=== PATIENT | male | born 1960 | race African-American/Black ===

== ENCOUNTER 2016-10-28 07:30 | Inpatient (IN) ==
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
[2016-10-28 07:56] LABS: URINE SOURCE CLEAN CATCH
[2016-10-28 08:18] LABS: MANUAL DIFF NEEDED? YES
[2016-10-28 08:19] LABS: BASO% 0.1 % (0.0-0.8); EOS# 0.03 X1000 (0.0-0.7); EOS% 0.1 % (0.0-10.0); HEMATOCRIT 29.8 % (42.0-52.0); HEMOGLOBIN 9.5 g/dL (14.0-18.0); LYMPH# 1.65 X1000 (1.2-3.4); LYMPH% 5.4 % (20.5-51.1); MCH 23.5 PG (27-31); MCHC 31.9 g/dL (33-37); MCV 73.6 FL (81-99); MONO# 2.05 X1000 (0.11-0.59); MONO% 6.7 % (1.7-9.3); MPV 8.9 FL (7.4-10.4); NEUT% 87.7 % (42.2-75.2); PLT 645 X1000 (130-400); RBC 4.05 XMIL (4.7-6.1)
[2016-10-28 08:25] LABS: BILIRUBIN URINE NEGATIVE (NEGATIVE); BLOOD URINE SMALL (NEGATIVE); COLOR ORANGE; GLUCOSE URINE NEGATIVE (NEGATIVE); LEUKOCYTES URINE LARGE (NEGATIVE); NITRITE URINE NEGATIVE (NEGATIVE); PH URINE 8.5; PROTEIN URINE >600 mg/dL (NEGATIVE); SP GRAVITY URINE 1.013; TURBIDITY URINE TURBID (CLEAR); UROBILINOGEN URINE NORMAL (NORMAL)
[2016-10-28] MEDS ORDERED: ROCEPHIN 1 GM/NS 1 GM/50 ML IVPB IV ONE (08:25)
[2016-10-28 08:26] LABS: AGAP 13; ALBUMIN 2.6 g/dL (3.5-5.0); ALKALINE PHOSPHATASE 126 U/L (32-122); BUN 19 mg/dL (8-22); CALCIUM 9.1 mg/dL (8.8-10.2); CHLORIDE 97 mmol/L (98-107); COSMO 280; GOT 10 U/L (10-34); GPT 5 U/L (10-44); POTASSIUM 3.5 mmol/L (3.5-5.1); SODIUM 139 mmol/L (136-145); TCO2 29 mmol/L (25-35); TOTAL PROTEIN 7.8 g/dL (6.3-8.3)
[2016-10-28 08:28] LABS: UR EPITHELIAL CELLS >10 /HPF (<10); URINE BACTERIA 4+ /HPF; URINE CULTURE NEEDED? YES; URINE MICRO REVIEW NEEDED? YES; URINE RBC TNTC /HPF (<10); URINE WBC TNTC /HPF (<10)
[2016-10-28] MEDS ORDERED: NS 1,000 ML IV ONE (08:33)
[2016-10-28 08:46] LABS: URINE CASTS GRANULAR PRESENT; URINE CRYSTALS TRIPLE PHOS PRESENT; URINE SMALL ROUND CELLS NONE SEEN
--- NOTE | 2016-10-28 08:49 | Diag Imaging Result Doc PS360 ---
EXAM: CHEST-PORTABLE INDICATION: Cough TECHNIQUE: One view COMPARISON: 06/26/2015 FINDINGS: There are minimal increased linear markings at the lung bases are fairly similar to the previous study. This suggests minimal subsegmental atelectasis versus scarring. There is no discrete pleural fluid collection or pneumothorax. Cardiac silhouette is stable. IMPRESSION: Suggestion of minimal bibasilar atelectasis versus scarring. No definite acute pathology by plain radiograph. Electronically signed by Gio Cheek 10/28/2016 8:46 AM
[2016-10-28] MEDS: NS 1,000 ML IV SCH ×2 (10:07→22:09)
[2016-10-28] MEDS: MERREM 1 GM in NS 50 ML IV SCH ×2 (11:30→18:00)
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
--- NOTE | 2016-10-28 16:44 | Diag Imaging Result Doc PS360 ---
EXAM: US ABDOMEN-COMPLETE INDICATION: kalli/h/o hydronephrosis/abd pain COMPARISON: Renal ultrasound dated 06/18/2010 FINDINGS: The gallbladder is not identified and is probably been resected. Please correlate with surgical history. The common bile duct is normal in diameter. The liver is grossly unremarkable. Portal venous flow is hepatopedal. The pancreas is obscured by bowel gas. The aorta and IVC are grossly unremarkable. The spleen is unremarkable. There are multiple prominent intrarenal stones bilaterally. There is no evidence of hydronephrosis. The kidneys are grossly unremarkable, otherwise. IMPRESSION: 1.Bilateral nephrolithiasis. 2.Essentially unremarkable, otherwise. Electronically signed by Gio Cheek 10/28/2016 4:41 PM
[2016-10-28] MEDS: PERICOLACE PO SCH (22:11)
[2016-10-28] MEDS: NEURONTIN PO SCH (22:11)
[2016-10-28] MEDS: DESYREL PO SCH (22:11)
[2016-10-28] MEDS: PATIENT'S OWN MED PO SCH (22:12)
[2016-10-28] MEDS: COSOPT OPHTH SOLN BOTH EYES SCH (22:12)
[2016-10-28] MEDS: XALATAN 0.005% OPH SOLN BOTH EYES SCH (22:12)
[2016-10-29] MEDS: MERREM 1 GM in NS 50 ML IV SCH ×3 (02:55→19:46)
[2016-10-29] MEDS: TYLENOL PO PRN ×2 (04:41→20:51)
[2016-10-29] MEDS: PRILOSEC PO SCH (06:29)
[2016-10-29] MEDS: NS 1,000 ML IV SCH ×2 (06:29→16:37)
[2016-10-29 07:13] LABS: INR 1.31
[2016-10-29 07:33] LABS: AGAP 12; BUN 15 mg/dL (8-22); CHLORIDE 102 mmol/L (98-107); COSMO 278; IRON SATURATION 16 %; POTASSIUM 2.7 mmol/L (3.5-5.1); SODIUM 139 mmol/L (136-145); TCO2 25 mmol/L (25-35); TIBC 112 ug/dL; TOTAL IRON 18 ug/dL (53-167); UNBOUND IRON 94 ug/dL (112-346)
[2016-10-29] MEDS ORDERED: MAGNESIUM SULFATE 2 GM/S.W.I. 2 GM/50 ML IVPB IV ONE (08:15)
[2016-10-29] MEDS ORDERED: KLOR-CON PO ONE (08:15)
[2016-10-29] MEDS: CELEXA PO SCH (10:47)
[2016-10-29] MEDS: ASPIRIN PO SCH (10:47)
[2016-10-29] MEDS: NEURONTIN PO SCH ×2 (10:48→20:03)
[2016-10-29] MEDS: PERICOLACE PO SCH ×2 (10:48→20:03)
[2016-10-29] MEDS: THERA M PLUS PO SCH (10:48)
[2016-10-29] MEDS: LOVENOX SUBQ SCH ×2 (10:48→11:01)
[2016-10-29] MEDS: COSOPT OPHTH SOLN BOTH EYES SCH ×2 (10:57→20:02)
[2016-10-29] MEDS: PATIENT'S OWN MED PO SCH ×2 (11:00→20:03)
--- NOTE | 2016-10-29 14:14 | PROGRESS NOTE ---
DATE: 10/29/2016 SUBJECTIVE: Today Mr. Wilson refers to be doing a little better. Denies any complaints. Per the nursing staff, his night was uneventful. OBJECTIVE: General: Ms. Wilson is a 56-year-old male. He looks chronically ill. He is quadriplegic. He is in bed, does not seem to be in any distress. HEENT: Mucosa is pink and moist. Anicteric. Acyanotic. Neck: Supple. Chest: Clear. Cardiovascular: Regular rate and rhythm. Abdomen: Soft, nontender. There is a suprapubic catheter in place. 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 He is in position due to his spastic quadriplegia. LABORATORY DATA: There is no CBC for this morning. Yesterday, WBC was 30.75, hemoglobin was 9.5, platelet count 644,000. Chemistry is reviewed. Potassium is 2.7, which is replaced. ASSESSMENT: 1. Sepsis secondary to urinary tract infection. 2. Indwelling suprapubic catheter. 3. Acute kidney injury, resolved. 4. Microcytic anemia secondary to chronic disease. 5. Severe protein calorie malnutrition. 6. Quadriplegia, noted. PLAN: So far, the Mr. Wilson's urine is showing gram-negative rods. He is currently on meropenem. We plan to continue this until we know the ID and sensitivity. We will also be checking on his labs for tomorrow morning, especially on the WBC. cc: Camilo Sanchez MD MTDShima
--- NOTE | 2016-10-29 14:39 | Diag Imaging Result Doc PS360 ---
EXAM: ABDOMEN/PELVIS W/O CONTRAST INDICATION: kidney stones TECHNIQUE: COMPARISON: 06/19/2015 FINDINGS: There is mild subsegmental atelectasis versus scarring at the lung bases. There are large intrarenal stones bilaterally. There is a staghorn calculus on the left. The right renal collecting system is dilated and there are droplets of gas in the right renal pelvis consistent with pyelitis. There is a prominent fluid collection with a thickened irregular periphery that extends from the posterior aspect of the right kidney through the posterior abdominal wall and into the subcutaneous soft tissues just deep to the skin surface of the right flank. This is consistent with abscess. It is probably contiguous with the dilated right renal collecting system. Axially, it measures up to 6.8 x 7.3 cm. There is mild prominence and inflammatory changes around the right ureter. The left ureter is also somewhat dilated. No obstructing stones are identified in the ureters. However, there is a 4.4 mm stone near the right UVJ but probably already within the urinary bladder. There is a suprapubic percutaneous catheter in the urinary bladder. There is a large rectal fecal impaction. The impacted rectum measures up to 9.6 x 8.4 cm axially. There is no significant small bowel distention. The gallbladder is contracted and full of dense material. This probably represents multiple calcified stones in the gallbladder lumen. No pericholecystic inflammatory changes appreciated. The liver, spleen, adrenal glands, and pancreas are unremarkable. There is severe irregularity involving the hips, worse on the right, with heterotopic bone formation around the right hip, stable. IMPRESSION: 1.Bulky intrarenal stones bilaterally. 2.Distended right renal collecting system with droplets of gas in the right renal pelvis suggesting pyelitis with a prominent fluid collection extending through the posterior abdominal wall into the soft tissues of the right flank consistent with abscess. Please see the above discussion. 3.Bilateral bulky intrarenal stones and a 4 mm stone near the right UPJ but probably already within the urinary bladder. 4.Large rectal fecal impaction. 5.Other incidental/nonacute findings detailed above. Electronically signed by Gio Cheek 10/29/2016 2:36 PM
[2016-10-29] MEDS ORDERED: DULCOLAX PR ONE (15:18)
--- NOTE | 2016-10-29 15:47 | CONSULTATION ---
DATE OF CONSULTATION: 10/29/2016 ATTENDING AND REFERRING PHYSICIAN: Hospitalist. HISTORY OF PRESENT ILLNESS: This 56-year-old male with incomplete C4 quadriplegia that manages his bladder with an indwelling suprapubic tube was admitted with a significantly increased white blood cell count and urinary tract infection. He was noted to have significant leakage around his suprapubic tube. The patient states he has had this for several weeks. He states the alf changes his suprapubic tube monthly. He was last seen by urology in June of 2015 where he was noted to have a left staghorn calculus that was nonobstructing and a 1 cm stone in the right proximal ureter with hydronephrosis. He had sepsis syndrome at that time and a double-J stent was placed. He states as far as he knows the stent is still in place. He states he has had no further treatment. The patient denies any other urologic surgery. PAST MEDICAL HISTORY: As noted in the HPI. Hypertension, recurrent urinary infections, neurogenic bladder secondary to his neurological problems, history of sacral decubitus ulcers, gastroesophageal reflux disease. CURRENT MEDICATIONS: Documented on the chart. PAST SURGICAL HISTORY: Suprapubic tube placement, cystoscopic exam with placement of a right double-J stent in 2015. SOCIAL HISTORY: No tobacco or alcohol use. He lives in a alf. ALLERGIES: No known drug allergies. REVIEW OF SYSTEMS: He states he has been feeling weak. He denies any problems with heart disease, strokes, or seizures. PHYSICAL EXAMINATION: General: A very thin, age-apparent, normally-developed, black male, with apparent contractures of his lower extremities with muscle atrophy consistent with quadriplegia. : Normal male. Both testes are down and palpably normal. There is a suprapubic tube in place and it does not appear to be draining very well. Back: Has apparent decubitus ulcers but dressings are in place and these were not disturbed. Rectal: He has significant hemorrhoids. Rectal exam has no sphincter tone and prostate is about 30 g, smooth, and symmetric. The patient had a bowel movement after the rectal exam. Extremities: No clubbing, cyanosis, or edema. Neurologic: Consistent with partial C4 quadriplegia. LABORATORY EVALUATION: Has a white count of 30.75, hemoglobin 9.5, hematocrit 29.8, platelets are 645,000. Serum electrolytes have a sodium of 139, potassium 2.7, chloride 102, bicarb 25, BUN 15, creatinine 1.0. Urine culture obtained yesterday is growing a gram-negative farhat. Renal ultrasound reveals bilateral nephrolithiasis but no hydronephrosis. IMPRESSION: 1. Obstructed suprapubic tube. 2. Urinary tract infection with markedly increased white blood cell count. 3. History of renal lithiasis. RECOMMEND: 1. Change SP tube. This was done without problems. The SP tube was obstructed and when it was removed a large amount of purulent urine came out of the SP tube tract. A new 20-Burm[place] SP tube was placed, 10 mL of water were placed in the balloon, and it was placed to drain 2. Keep the suprapubic tube perpendicular to the skin. 3. Antibiotics per culture sensitivities. 4. CT stone search to evaluate his kidney stones. 5. Irrigate the bladder through suprapubic tube as needed. Thank you for this consultation. cc: MD Camilo Duran MD
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
[2016-10-29] MEDS: FLOVENT 220 MICROGM HFA INH SCH (19:44)
[2016-10-29] MEDS: XALATAN 0.005% OPH SOLN BOTH EYES SCH (20:02)
[2016-10-29] MEDS: DESYREL PO SCH (20:03)
[2016-10-30] MEDS: NS 1,000 ML IV SCH ×3 (02:04→22:30)
[2016-10-30] MEDS: MERREM 1 GM in NS 50 ML IV SCH ×2 (03:56→14:54)
[2016-10-30] MEDS ORDERED: TYLENOL PR PRN (04:13)
[2016-10-30] MEDS: PRILOSEC PO SCH (06:22)
[2016-10-30 07:59] LABS: AGAP 8; ALBUMIN 1.7 g/dL (3.5-5.0); ALKALINE PHOSPHATASE 107 U/L (32-122); BUN 10 mg/dL (8-22); CALCIUM 7.9 mg/dL (8.8-10.2); CHLORIDE 109 mmol/L (98-107); COSMO 283; GOT 11 U/L (10-34); GPT 5 U/L (10-44); MAGNESIUM 1.9 mg/dL (1.5-2.7); POTASSIUM 3.2 mmol/L (3.5-5.1); SODIUM 143 mmol/L (136-145); TCO2 26 mmol/L (25-35); TOTAL BILIRUBIN 1.06 mg/dL (0.20-1.00); TOTAL PROTEIN 5.8 g/dL (6.3-8.3)
[2016-10-30] MEDS: FLOVENT 220 MICROGM HFA INH SCH ×2 (08:11→20:00)
[2016-10-30] MEDS ORDERED: KLOR-CON PO ONE (08:18)
[2016-10-30] MEDS ORDERED: MAGNESIUM SULFATE 2 GM/S.W.I. 2 GM/50 ML IVPB IV ONE (08:19)
[2016-10-30 08:31] LABS: BASO% 0.1 % (0.0-0.8); EOS# 0.18 X1000 (0.0-0.7); EOS% 0.5 % (0.0-10.0); HEMATOCRIT 19.3 % (42.0-52.0); HEMOGLOBIN 6.1 g/dL (14.0-18.0); LYMPH# 1.26 X1000 (1.2-3.4); LYMPH% 3.2 % (20.5-51.1); MANUAL DIFF NEEDED? YES; MCH 23.5 PG (27-31); MCHC 31.6 g/dL (33-37); MCV 74.2 FL (81-99); MONO% 5.6 % (1.7-9.3); MPV 9.1 FL (7.4-10.4); NEUT% 90.6 % (42.2-75.2); PLT 539 X1000 (130-400)
[2016-10-30 09:22] LABS: LYMPHS 5 % (21-51); MONO 9 % (1-9)
[2016-10-30] MEDS: COSOPT OPHTH SOLN BOTH EYES SCH ×2 (10:09→22:39)
[2016-10-30 10:24] LABS: HEPATITIS PROFILE ACUTE SEE COMMENTS
[2016-10-30] MEDS: LOVENOX SUBQ SCH (13:19)
--- NOTE | 2016-10-30 14:30 | Diag Imaging Result Doc PS360 ---
CT GUIDE ABD DRAINAGE W/CATH - 10/30/2016 INDICATION: CT Guided Drainage of Subcutaneous and Retroperitoneum abscess- TECHNIQUE: The risks and benefits of the procedure were discussed with the patient. All questions were answered. Written and verbal informed consent was obtained. Overlying skin was prepped and draped in sterile fashion. Anesthesia was achieved with injection of 10 cc of 1% lidocaine. COMPARISON: CT abdomen pelvis 10/29/2016 FINDINGS: There is a subcutaneous collection in the right flank overlying the kidney. A 12-Tamazight drain was placed in this extremely superficial collection. About 50 cc of pus was drained. There are probably two pockets, the more superior pocket was drained very effectively whereas there is some residual pus in the inferior pocket. The drain was anchored and left in place. IMPRESSION: Successful and uncomplicated extremely superficial subcutaneous abscess drain. The abscess appears to be multiloculated, the superior most collection was drained more effectively than the inferior most portion. The inferior portion could probably be addressed just as effectively with simple surgical incision and drainage. Electronically signed by Irving Coronado 10/30/2016 2:28 PM
[2016-10-30] MEDS: THERA M PLUS PO SCH (14:52)
[2016-10-30] MEDS: CELEXA PO SCH (14:53)
[2016-10-30] MEDS: PATIENT'S OWN MED PO SCH ×3 (14:54→22:41)
[2016-10-30] MEDS: ASPIRIN PO SCH (14:54)
[2016-10-30] MEDS: PERICOLACE PO SCH ×2 (14:54→22:39)
[2016-10-30] MEDS: NEURONTIN PO SCH ×2 (14:54→22:37)
[2016-10-30] MEDS: MIRALAX PO SCH (14:55)
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
[2016-10-30] MEDS ORDERED: MAXIPIME 1 GM/NS 1 GM/50 ML IVPB IV SCH (19:00)
--- NOTE | 2016-10-30 19:18 | PROGRESS NOTE ---
DATE: 10/30/2016 PRESENT ILLNESS: The patient underwent percutaneous drainage of a perinephric abscess today. MEDICATIONS: The patient is receiving meropenem. PHYSICAL EXAMINATION: Vital Signs: Temperature is 98.9 degrees, pulse 90, respirations 16, blood pressure 82/46. General: This is an ill-appearing middle-aged male. He is in no acute distress. Lungs: Clear to auscultation. Cardiovascular: Regular heart rate. Abdomen: A drain is coming from the perinephric abscess into an accordion drain. Neurologic: Patient is awake. 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 LAB AND X-RAY: CBC today showed a white count of 39,230, hemoglobin 6.1 and platelet count 539,000. Creatinine 0.9. Hepatitis panel was nonreactive. Blood culture was negative. Urine cultures growing Acinetobacter and another gram-negative farhat. ASSESSMENT AND PLAN: I did not see where any of the fluid obtained percutaneously was sent for culture. Therefore, I have requested that a specimen from the drain that is draining the perinephric abscess be sent for culture. I have discontinued meropenem and placed the patient on cefepime. I plan to continue cefepime pending final identification of the gram-negative farhat that is present in the urine along with Acinetobacter. COMORBIDITIES: He has renal calculi and he is very debilitated. cc: MD Camilo Edwards MD
[2016-10-30] MEDS: DESYREL PO SCH (22:37)
[2016-10-30] MEDS: XALATAN 0.005% OPH SOLN BOTH EYES SCH (22:38)
[2016-10-31] MEDS: NORCO-5 PO PRN ×2 (01:21→10:21)
[2016-10-31] MEDS: NS 1,000 ML IV SCH ×3 (05:45→20:57)
[2016-10-31 07:18] LABS: BASO% 0.2 % (0.0-0.8); EOS# 0.61 X1000 (0.0-0.7); EOS% 1.8 % (0.0-10.0); HEMOGLOBIN 5.9 g/dL (14.0-18.0); IMM GRAN# 0.24 X1000 (0.0-0.04); IMM GRAN% 0.7 % (0.0-0.5); LYMPH# 2.44 X1000 (1.2-3.4); LYMPH% 7.4 % (20.5-51.1); MANUAL DIFF NEEDED? YES; MCH 22.4 PG (27-31); MCHC 31.1 g/dL (33-37); MCV 72.2 FL (81-99); MONO# 1.68 X1000 (0.11-0.59); MONO% 5.1 % (1.7-9.3); MPV 9.3 FL (7.4-10.4); NEUT% 84.8 % (42.2-75.2); PLT 568 X1000 (130-400); RBC 2.63 XMIL (4.7-6.1)
[2016-10-31 07:21] LABS: AGAP 9; BUN 11 mg/dL (8-22); CHLORIDE 108 mmol/L (98-107); COSMO 281; POTASSIUM 3.6 mmol/L (3.5-5.1); SODIUM 142 mmol/L (136-145); TCO2 25 mmol/L (25-35)
[2016-10-31] MEDS: PRILOSEC PO SCH (07:53)
[2016-10-31] MEDS: FLOVENT 220 MICROGM HFA INH SCH ×2 (08:19→19:31)
[2016-10-31 08:21] LABS: BANDS 2 % (0-1); LYMPHS 4 % (21-51); MONO 2 % (1-9)
[2016-10-31 08:22] LABS: HYPOCHROM 3+
[2016-10-31 09:57] LABS: CREATININE BODY FLUID 0.7 mg/dL
[2016-10-31] MEDS: ASPIRIN PO SCH (10:22)
[2016-10-31] MEDS: CELEXA PO SCH (10:22)
[2016-10-31] MEDS: LOVENOX SUBQ SCH (10:23)
[2016-10-31] MEDS: COSOPT OPHTH SOLN BOTH EYES SCH ×2 (10:23→20:56)
[2016-10-31] MEDS: NEURONTIN PO SCH ×2 (10:24→20:56)
[2016-10-31] MEDS: THERA M PLUS PO SCH (10:25)
[2016-10-31] MEDS: PATIENT'S OWN MED PO SCH ×2 (10:25→20:57)
[2016-10-31] MEDS: PERICOLACE PO SCH ×2 (10:25→20:56)
[2016-10-31] MEDS: LEVAQUIN PO SCH (10:25)
[2016-10-31] MEDS: MIRALAX PO SCH (10:26)
[2016-10-31] MEDS: INVANZ 1 GM/NS 1 GM/50 ML IVPB IV SCH (10:56)
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
--- NOTE | 2016-10-31 15:11 | PROGRESS NOTE ---
DATE: 10/31/2016 PRESENT ILLNESS: The patient is status post percutaneous drainage of a perinephric abscess today. The abscess grew an extended spectrum beta lactamase-producing Escherichia coli and Acinetobacter. MEDICATIONS: The patient is day 1 of treatment with ertapenem and levofloxacin. The patient is on ertapenem and Levaquin. PHYSICAL EXAMINATION: Vital Signs: Temperature is 97.7 degrees, pulse 68, respirations 18, blood pressure 84/47. General: This is a chronically ill-appearing middle-aged male. He is in no acute distress at this time. Lungs: Clear to auscultation. Cardiovascular: Regular heart rate. Abdomen: Soft and not tender. A percutaneous drain is in place involving the perinephric abscess. LABORATORY AND X-RAY: CBC today shows a white count of 32,990, hemoglobin 5.9 and platelet count 568,000. Creatinine 0.7. GFR is greater than 60. There was no new x-ray finding. ASSESSMENT AND PLAN: 1. The patient is on antibiotics to treat a perinephric abscess which has been drained percutaneously. I plan to treat the patient for anywhere from 2-4 weeks with IV antibiotics and possibly more depending on how the patient does. The radiologist will decide when the drain can come out. 2. Comorbidities: The patient has renal calculi. He also is extremely debilitated. cc: Vinay Ramos MD
[2016-10-31] MEDS: SANTYL OINT TOP SCH (16:08)
[2016-10-31] MEDS: DESYREL PO SCH (20:56)
[2016-10-31] MEDS: XALATAN 0.005% OPH SOLN BOTH EYES SCH (20:56)
[2016-11-01] MEDS: NS 1,000 ML IV SCH ×4 (05:03→18:38)
[2016-11-01] MEDS: PRILOSEC PO SCH (06:12)
[2016-11-01 06:34] LABS: MANUAL DIFF NEEDED? NO
[2016-11-01 06:50] LABS: BASO% 0.2 % (0.0-0.8); EOS# 0.49 X1000 (0.0-0.7); EOS% 2.6 % (0.0-10.0); HEMATOCRIT 27.8 % (42.0-52.0); HEMOGLOBIN 9.1 g/dL (14.0-18.0); IMM GRAN# 0.15 X1000 (0.0-0.04); IMM GRAN% 0.8 % (0.0-0.5); LYMPH# 1.65 X1000 (1.2-3.4); LYMPH% 8.9 % (20.5-51.1); MCH 24.8 PG (27-31); MCHC 32.7 g/dL (33-37); MCV 75.7 FL (81-99); MONO# 1.09 X1000 (0.11-0.59); MONO% 5.9 % (1.7-9.3); MPV 8.9 FL (7.4-10.4); NEUT% 81.6 % (42.2-75.2); PLT 650 X1000 (130-400); RBC 3.67 XMIL (4.7-6.1)
[2016-11-01 06:58] LABS: AGAP 8; ALKALINE PHOSPHATASE 91 U/L (32-122); BUN 8 mg/dL (8-22); CALCIUM 8.1 mg/dL (8.8-10.2); CHLORIDE 109 mmol/L (98-107); COSMO 280; GOT 25 U/L (10-34); GPT 9 U/L (10-44); POTASSIUM 3.4 mmol/L (3.5-5.1); SODIUM 142 mmol/L (136-145); TCO2 25 mmol/L (25-35); TOTAL PROTEIN 5.9 g/dL (6.3-8.3)
[2016-11-01] MEDS: FLOVENT 220 MICROGM HFA INH SCH ×2 (07:40→19:14)
[2016-11-01] MEDS: INVANZ 1 GM/NS 1 GM/50 ML IVPB IV SCH (09:57)
[2016-11-01] MEDS: NEURONTIN PO SCH ×2 (09:58→20:23)
[2016-11-01] MEDS: ASPIRIN PO SCH (09:58)
[2016-11-01] MEDS: PERICOLACE PO SCH ×2 (09:58→20:23)
[2016-11-01] MEDS: THERA M PLUS PO SCH (09:58)
[2016-11-01] MEDS: LEVAQUIN PO SCH (09:58)
[2016-11-01] MEDS: CELEXA PO SCH (09:58)
[2016-11-01] MEDS: LOVENOX SUBQ SCH ×2 (09:58→10:55)
[2016-11-01] MEDS: MIRALAX PO SCH (09:59)
[2016-11-01] MEDS: PATIENT'S OWN MED PO SCH (10:00)
[2016-11-01] MEDS: COSOPT OPHTH SOLN BOTH EYES SCH ×2 (10:00→20:24)
--- NOTE | 2016-11-01 11:37 | Diag Imaging Result Doc PS360 ---
EXAM: ABDOMEN W/O CONTRAST HISTORY: f u right flank abcess TECHNIQUE: CT abdomen without. Dose reduction protocol. COMPARISON: 10/29/2016 and 10/30/2016 FINDINGS: Marked interval decrease in the size of the right flank abscess. There is decreased fluid within it. Drainage catheter remains in the central portion. Large bilateral renal stones are found similar to the prior exam. Spleen is not enlarged. Normal adrenal glands. Normal noncontrasted liver and pancreas. The gallbladder is contracted. The bowel loops are not dilated. There is focal weakening to the anterior abdominal wall which is similar to the prior exam. IMPRESSION: Interval improvement with marked decrease in the size of the right flank abscess Electronically signed by Lexa Campa 11/01/2016 11:34 AM
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
--- NOTE | 2016-11-01 17:44 | PROGRESS NOTE ---
DATE: 11/01/2016 PRESENT ILLNESS: The patient is receiving antibiotics for a perinephric abscess. A percutaneous drain remains in place. MEDICATIONS: This is day 2 of treatment with the combination of levofloxacin and ertapenem. PHYSICAL EXAMINATION: Vital Signs: Temperature is 98.6 degrees, pulse 73, respirations 16, blood pressure 139/70. Generally: This is a malnourished chronically ill- appearing middle-aged male. He is in no acute distress. Lungs: Clear to auscultation. Cardiovascular: Regular heart rate. Abdomen: Soft and nontender. The patient has a percutaneous drain in place. LABORATORY AND X-RAY: Today the patient's CBC has a white count of 18,570, which is down from 32,990 yesterday. The hemoglobin is 9.1, and platelet count 650,000. Creatinine 0.7. GFR is greater than 60. The patient's liver function studies are normal. The abscess culture itself is growing 2 gram-negative rods which will most likely be the same 2 gram negative rods that were isolated from his urine. CT scan shows a marked decrease in size of the perinephric abscess. ASSESSMENT AND PLAN: The patient has a perinephric abscess. Will continue his current antibiotics. COMORBIDITIES: He has renal calculi and he is extremely debilitated. cc: Vinay Ramos MD MTDD
[2016-11-01] MEDS: SANTYL OINT TOP SCH (18:38)
[2016-11-01] MEDS: XALATAN 0.005% OPH SOLN BOTH EYES SCH (20:23)
[2016-11-01] MEDS: DESYREL PO SCH (20:23)
[2016-11-02] MEDS: PATIENT'S OWN MED PO SCH (00:48)
[2016-11-02] MEDS: PRILOSEC PO SCH (06:02)
[2016-11-02] MEDS: NS 1,000 ML IV SCH ×2 (06:02→10:15)
[2016-11-02 06:52] LABS: MANUAL DIFF NEEDED? NO
[2016-11-02 06:57] LABS: BASO% 0.1 % (0.0-0.8); EOS# 0.43 X1000 (0.0-0.7); EOS% 2.8 % (0.0-10.0); HEMATOCRIT 29.3 % (42.0-52.0); HEMOGLOBIN 9.5 g/dL (14.0-18.0); IMM GRAN# 0.19 X1000 (0.0-0.04); IMM GRAN% 1.2 % (0.0-0.5); LYMPH# 1.63 X1000 (1.2-3.4); LYMPH% 10.5 % (20.5-51.1); MCH 24.6 PG (27-31); MCHC 32.4 g/dL (33-37); MCV 75.9 FL (81-99); MONO# 1.19 X1000 (0.11-0.59); MONO% 7.7 % (1.7-9.3); MPV 8.9 FL (7.4-10.4); NEUT% 77.7 % (42.2-75.2); PLT 728 X1000 (130-400); RBC 3.86 XMIL (4.7-6.1)
[2016-11-02 07:07] LABS: AGAP 10; BUN 5 mg/dL (8-22); CHLORIDE 107 mmol/L (98-107); COSMO 278; SODIUM 141 mmol/L (136-145); TCO2 24 mmol/L (25-35)
[2016-11-02] MEDS ORDERED: KLOR-CON PO ONE (08:12)
[2016-11-02] MEDS: FLOVENT 220 MICROGM HFA INH SCH (08:15)
[2016-11-02 08:19] VITALS: BP 101/56
[2016-11-02] MEDS: INVANZ 1 GM/NS 1 GM/50 ML IVPB IV SCH (10:09)
[2016-11-02] MEDS: CELEXA PO SCH (10:10)
[2016-11-02] MEDS: ASPIRIN PO SCH (10:10)
[2016-11-02] MEDS: PERICOLACE PO SCH (10:10)
[2016-11-02] MEDS: LEVAQUIN PO SCH (10:10)
[2016-11-02] MEDS: NEURONTIN PO SCH (10:12)
[2016-11-02] MEDS: THERA M PLUS PO SCH (10:12)
[2016-11-02] MEDS: LOVENOX SUBQ SCH (10:14)
[2016-11-02] MEDS: MIRALAX PO SCH (10:14)
--- NOTE | 2016-11-02 10:44 | PROGRESS NOTE ---
DATE: 11/02/2016 Patient has a perinephric abscess. He is being discharged [facility] today on Invanz 1 g IV daily and Levaquin 500 mg p.o. daily for 3 weeks. I plan to see the patient back in the office in 3 weeks at which time I will examine him and then order a repeat CT scan to make sure that the perinephric abscess has cleared. cc: Vinay Ramos MD
[2016-11-02] MEDS ORDERED: NS 250 ML ONE (11:05)
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
--- NOTE | 2016-11-03 15:32 | PROGRESS NOTE ---
DATE: 11/03/2016 Another culture has come back from the patient's abdomen. The culture grew Proteus mirabilis E. coli and Enterococcus. Patient already has good coverage for the E coli and the Proteus mirabilis however it does not for the Enterococcus it is susceptible to ampicillin and I called in a prescription for him at [facility] to take amoxicillin 500 mg p.o. every 8 hours for the next 4 weeks. If the abscess clears before 4 weeks then amoxicillin will be stopped sooner. cc: Vinay Ramos MD MTDD
== END 2016-11-02 13:15 ==
LOC: ED 07:30 → 3N 09:12 → SUATTDRO 09:12
PROVIDERS: ATTEND Internal Medicine

== ENCOUNTER 2018-05-23 15:59 | Inpatient (IN) ==
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
[2018-05-23] MEDS ORDERED: ROCEPHIN 1 GM in NS 50 ML IV SCH (19:30)
[2018-05-23 20:57] LABS: BASO# 0.02 X1000 (0.0-0.2); BASO% 0.1 % (0.0-0.8); EOS# 0.22 X1000 (0.0-0.7); EOS% 1.1 % (0.0-10.0); HEMATOCRIT 41.3 % (42.0-52.0); HEMOGLOBIN 12.9 g/dL (14.0-18.0); IMM GRAN# 0.05 X1000 (0.0-0.04); IMM GRAN% 0.2 % (0.0-0.5); LYMPH# 1.16 X1000 (1.2-3.4); LYMPH% 5.7 % (20.5-51.1); MCH 24.9 PG (27-31); MCHC 31.2 g/dL (33-37); MCV 79.6 FL (81-99); MONO# 0.97 X1000 (0.11-0.59); MONO% 4.7 % (1.7-9.3); MPV 9.3 FL (7.4-10.4); NEUT# 18.09 X1000 (1.4-6.5); NEUT% 88.2 % (42.2-75.2); PLT 632 X1000 (130-400); RBC 5.19 XMIL (4.7-6.1); RDW 14.8 % (11.5-14.5); URINE SOURCE CLEAN CATCH; WBC 20.51 X1000 (4.8-10.8)
[2018-05-23 21:04] LABS: BILIRUBIN URINE NEGATIVE (NEGATIVE); BLOOD URINE LARGE (NEGATIVE); CLARITY CLOUDY (CLEAR); COLOR BROWN; GLUCOSE URINE NEGATIVE (NEGATIVE); KETONE URINE NEGATIVE (NEGATIVE); SP GRAVITY URINE 1.015
[2018-05-23 21:05] LABS: LEUKOCYTES URINE MODERATE (NEGATIVE); NITRITE URINE NEGATIVE (NEGATIVE); PH URINE 7.5; PROTEIN URINE 100 mg/dL (NEGATIVE); URINE BACTERIA 2+ /HFP; URINE EPITHELIAL CELLS <10 /HPF (<10); URINE RBC TNTC /HPF (<10); URINE WBC TNTC /HPF (<10)
[2018-05-23 21:42] LABS: AGAP 10; ALB/GLOB RATIO 0.9; ALBUMIN 3.5 g/dL (3.5-5.0); ALKALINE PHOSPHATASE 163 U/L (32-122); BUN 9 mg/dL (8-22); CALCIUM 9.1 mg/dL (8.8-10.2); CHLORIDE 105 mmol/L (98-107); COSMO 284; CREATININE 0.9 mg/dL (0.7-1.2); ESTIMATED GFR > 60; GLUCOSE 109 mg/dL (70-104); GOT 16 U/L (10-34); GPT 9 U/L (10-44); POTASSIUM 4.5 mmol/L (3.5-5.1); SODIUM 143 mmol/L (136-145); TCO2 28 mmol/L (25-35); TOTAL BILIRUBIN 1.36 mg/dL (0.20-1.00); TOTAL PROTEIN 7.5 g/dL (6.3-8.3)
[2018-05-23] MEDS ORDERED: NS 1,000 ML IV ONE (21:44)
[2018-05-24] MEDS ORDERED: ZOFRAN IV PRN (00:08)
[2018-05-24 00:09] LABS: INR 0.96; PROTIME 13.5 Seconds (11.0-16.0)
[2018-05-24 00:10] LABS: PTT 27.8 Seconds (22.3-41.8)
[2018-05-24] MEDS: MERREM 1 GM in NS 50 ML IV SCH ×3 (00:22→17:24)
[2018-05-24] MEDS: NS 1,000 ML IV SCH ×2 (00:22→13:50)
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
[2018-05-24 07:41] LABS: BASO# 0.04 X1000 (0.0-0.2); BASO% 0.2 % (0.0-0.8); EOS# 0.21 X1000 (0.0-0.7); EOS% 1.1 % (0.0-10.0); HEMATOCRIT 29.1 % (42.0-52.0); HEMOGLOBIN 9.2 g/dL (14.0-18.0); IMM GRAN# 0.06 X1000 (0.0-0.04); IMM GRAN% 0.3 % (0.0-0.5); LYMPH# 1.86 X1000 (1.2-3.4); MCH 25.2 PG (27-31); MCHC 31.6 g/dL (33-37); MCV 79.7 FL (81-99); MONO# 1.25 X1000 (0.11-0.59); MONO% 6.7 % (1.7-9.3); MPV 9.2 FL (7.4-10.4); NEUT% 81.7 % (42.2-75.2); PLT 502 X1000 (130-400); RBC 3.65 XMIL (4.7-6.1); RDW 14.6 % (11.5-14.5); WBC 18.52 X1000 (4.8-10.8)
[2018-05-24] MEDS: FLOVENT 220 MICROGM HFA INH SCH ×2 (07:51→19:44)
[2018-05-24 08:04] LABS: AGAP 9; BUN 8 mg/dL (8-22); CALCIUM 8.1 mg/dL (8.8-10.2); CHLORIDE 108 mmol/L (98-107); COSMO 281; CREATININE 0.9 mg/dL (0.7-1.2); ESTIMATED GFR > 60; GLUCOSE 91 mg/dL (70-104); POTASSIUM 3.1 mmol/L (3.5-5.1); SODIUM 142 mmol/L (136-145); TCO2 25 mmol/L (25-35)
--- NOTE | 2018-05-24 08:10 | PROGRESS NOTE ---
DATE: 05/24/2018 SUBJECTIVE: No acute events overnight. The patient was admitted to the hospitalist service yesterday. The patient was evaluated yesterday regarding non drainage from his suprapubic tube. It appeared that the suprapubic tube had been placed too deep while in the emergency room. I was able to pull this back to the bladder, and the catheter has drained well since then, drained over 700 mL of yellow urine. A small amount of sediment present in the catheter tubing. The patient had a small amount of drainage around the catheter, likely related to spasms due to urinary tract infection. The patient had some hematuria from his urethra, likely due to the balloon being inflated in the prostate or urethra. This seems to have resolved at this point. The patient denies any pain. OBJECTIVE: Vital signs: Temperature 99.3 degrees, blood pressure 123/72, heart rate 79, oxygen saturation 97% on room air. General: No acute distress. Resting comfortably in bed, alert and oriented x3. Respiratory: Good respiratory effort without audible wheezing or rales. Abdomen: Soft, nontender, nondistended. : Suprapubic tube in track. There is a small amount of drainage around the catheter. Clear yellow urine in the catheter tubing draining well. No evidence of any bleeding from the urethra into the diaper. The patient has upper and lower extremity contractures. YESTERDAY LABS: White blood cell count was 20.5, hematocrit 41.3. Sodium 143, potassium 4.5, chloride 105, bicarbonate 28. Creatinine 0.9, glucose 109. Lactate 2.7. Morning labs not resulted as of yet. ASSESSMENT AND PLAN: Mr. Wilson is a 57 year old with quadriplegia and neurogenic bladder, history of nephrolithiasis, blindness, who presents in evaluation for malfunctioning suprapubic tube. This was exchanged yesterday in the ED and has been draining well since then. I think patient has a urinary tract infection leading to his elevated white blood cell count and spasms of the bladder. Recommend he continue intravenous antibiotics. Currently on meropenem, which I think is a reasonable option due to his prior culture results. We will continue on intravenous antibiotics until culture results. Follow up the labs. Continue suprapubic tube to gravity drainage. The patient had some hematuria yesterday, which seems to have resolved today. We will continue to monitor. Please call with questions or concerns. cc: Yandel Alcantar MD MTDD
[2018-05-24] MEDS: COSOPT OPHTH SOLN BOTH EYES SCH ×2 (09:01→21:38)
[2018-05-24] MEDS: DESYREL PO SCH (09:02)
[2018-05-24] MEDS: PERICOLACE PO SCH ×2 (09:02→21:38)
[2018-05-24] MEDS: LIORESAL PO SCH ×3 (09:02→21:38)
[2018-05-24] MEDS: NEURONTIN PO SCH ×2 (09:02→21:38)
[2018-05-24] MEDS: THERA M PLUS PO SCH (09:03)
[2018-05-24] MEDS: PATIENT'S OWN MED PO SCH (09:03)
[2018-05-24] MEDS: FLOMAX PO SCH ×2 (09:03→21:38)
[2018-05-24] MEDS: PAXIL PO SCH (09:03)
[2018-05-24] MEDS ORDERED: KLOR-CON PO ONE (09:12)
--- NOTE | 2018-05-24 09:26 | EKG Report ---
Test Performed on : 05/24/2018 09:11:58 AM Test Reason : UTI,Pt. takes paroxetine and trazodone Blood Pressure : / mmHG Vent. Rate : 082 BPM Atrial Rate : 082 BPM P-R Int : 144 ms QRS Dur : 074 ms QT Int : 374 ms P-R-T Axes : 075 063 218 degrees QTc Int : 436 ms Sinus rhythm. with premature supraventricular complexes. Left ventricular hypertrophy with repolarization abnormality Abnormal ECG When compared with ECG of 19-JUN-2015 10:11, premature supraventricular complexes. are now present Vent. rate has decreased BY 42 BPM T wave inversion now evident in Inferior leads Nonspecific T wave abnormality, worse in Anterior leads Confirmed by Gely ALCOCER, Olivier Kaufman ([id number]) on 05/25/2018 7:10:32 AM
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
[2018-05-24] MEDS ORDERED: NS 1,000 ML IV ONE (15:32)
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
[2018-05-24] MEDS: XALATAN 0.005% OPH SOLN BOTH EYES SCH (21:37)
[2018-05-24] MEDS: TYLENOL PO PRN (21:38)
[2018-05-25] MEDS: MERREM 1 GM in NS 50 ML IV SCH ×4 (00:31→23:57)
[2018-05-25 07:40] LABS: BASO# 0.02 X1000 (0.0-0.2); BASO% 0.2 % (0.0-0.8); EOS# 0.48 X1000 (0.0-0.7); EOS% 4.2 % (0.0-10.0); HEMATOCRIT 26.7 % (42.0-52.0); HEMOGLOBIN 8.3 g/dL (14.0-18.0); IMM GRAN# 0.03 X1000 (0.0-0.04); IMM GRAN% 0.3 % (0.0-0.5); LYMPH# 2.21 X1000 (1.2-3.4); LYMPH% 19.2 % (20.5-51.1); MCH 24.9 PG (27-31); MCHC 31.1 g/dL (33-37); MCV 79.9 FL (81-99); MONO% 10.4 % (1.7-9.3); MPV 9.1 FL (7.4-10.4); NEUT# 7.58 X1000 (1.4-6.5); NEUT% 65.7 % (42.2-75.2); PLT 432 X1000 (130-400); RBC 3.34 XMIL (4.7-6.1); RDW 14.4 % (11.5-14.5); WBC 11.52 X1000 (4.8-10.8)
[2018-05-25] MEDS: FLOVENT 220 MICROGM HFA INH SCH ×2 (08:00→19:38)
[2018-05-25 08:07] LABS: AGAP 7; ALB/GLOB RATIO 0.7; ALBUMIN 2.6 g/dL (3.5-5.0); ALKALINE PHOSPHATASE 109 U/L (32-122); BUN 7 mg/dL (8-22); CALCIUM 8.2 mg/dL (8.8-10.2); CHLORIDE 111 mmol/L (98-107); COSMO 285; CREATININE 0.8 mg/dL (0.7-1.2); ESTIMATED GFR > 60; GLUCOSE 99 mg/dL (70-104); GOT 10 U/L (10-34); GPT 6 U/L (10-44); POTASSIUM 3.3 mmol/L (3.5-5.1); SODIUM 144 mmol/L (136-145); TCO2 26 mmol/L (25-35); TOTAL BILIRUBIN 0.31 mg/dL (0.20-1.00); TOTAL PROTEIN 6.2 g/dL (6.3-8.3)
[2018-05-25] MEDS: LIORESAL PO SCH ×3 (08:58→22:25)
[2018-05-25] MEDS: PERICOLACE PO SCH ×2 (08:59→22:25)
[2018-05-25] MEDS: NEURONTIN PO SCH ×2 (08:59→22:25)
[2018-05-25] MEDS: THERA M PLUS PO SCH (09:00)
[2018-05-25] MEDS: FLOMAX PO SCH ×2 (09:00→22:25)
[2018-05-25] MEDS: PAXIL PO SCH (09:00)
[2018-05-25] MEDS: DESYREL PO SCH (09:00)
[2018-05-25] MEDS: COSOPT OPHTH SOLN BOTH EYES SCH ×2 (09:03→22:24)
[2018-05-25] MEDS: PATIENT'S OWN MED PO SCH (09:19)
[2018-05-25] MEDS ORDERED: KLOR-CON PO ONE (09:47)
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
[2018-05-25] MEDS: XALATAN 0.005% OPH SOLN BOTH EYES SCH (22:24)
[2018-05-26 07:39] LABS: BASO# 0.03 X1000 (0.0-0.2); BASO% 0.2 % (0.0-0.8); EOS# 0.39 X1000 (0.0-0.7); EOS% 2.8 % (0.0-10.0); HEMATOCRIT 27.7 % (42.0-52.0); HEMOGLOBIN 8.6 g/dL (14.0-18.0); IMM GRAN# 0.05 X1000 (0.0-0.04); IMM GRAN% 0.4 % (0.0-0.5); LYMPH# 1.65 X1000 (1.2-3.4); LYMPH% 11.9 % (20.5-51.1); MCH 24.9 PG (27-31); MCV 80.3 FL (81-99); MONO# 1.22 X1000 (0.11-0.59); MONO% 8.8 % (1.7-9.3); MPV 8.9 FL (7.4-10.4); NEUT# 10.57 X1000 (1.4-6.5); NEUT% 75.9 % (42.2-75.2); PLT 461 X1000 (130-400); RBC 3.45 XMIL (4.7-6.1); RDW 14.4 % (11.5-14.5); WBC 13.91 X1000 (4.8-10.8)
[2018-05-26 08:11] LABS: AGAP 7; BUN 4 mg/dL (8-22); CALCIUM 8.1 mg/dL (8.8-10.2); CHLORIDE 103 mmol/L (98-107); COSMO 272; CREATININE 0.8 mg/dL (0.7-1.2); ESTIMATED GFR > 60; GLUCOSE 86 mg/dL (70-104); POTASSIUM 3.7 mmol/L (3.5-5.1); SODIUM 138 mmol/L (136-145); TCO2 28 mmol/L (25-35)
[2018-05-26] MEDS: FLOVENT 220 MICROGM HFA INH SCH ×2 (08:34→19:51)
--- NOTE | 2018-05-26 08:38 | PROGRESS NOTE ---
DATE: 05/26/2018 SUBJECTIVE: No acute events overnight. The patient has had good urinary output from his suprapubic catheter, over 2 L recorded yesterday. Tolerating p.o. intake. He has had multiple bowel movements. The patient denies any nausea, vomiting or abdominal pain. The patient remains afebrile. OBJECTIVE: Vital Signs: Temperature 98.1, heart rate 68, blood pressure 104/57 , oxygen saturation 100%. General: No acute distress. Resting comfortably in bed. Respiratory: Good respiratory effort without audible wheezing or rales. Cardiovascular: No evidence of tachycardia. No evidence of lower extremity edema. Abdomen: Soft, nontender, nondistended. No palpable masses. Genitourinary: Suprapubic tube site with a 22-Telugu suprapubic tube in place draining clear yellow urine. There is a small amount of sediment present within the tube. The penis is slightly edematous, but with no evidence of active bleeding from the urethra. Neurologic: Quadriplegia with bilateral upper and lower extremity contractures. LABS: White blood cell count 13.9, hemoglobin 8.6, hematocrit 27.7, platelets 461,000. Urine cultures growing gram-negative rods. ASSESSMENT AND PLAN: Mr. Wilson is a 57-year-old with quadriplegia, neurogenic bladder, history of nephrolithiasis, vision impaired, who presents in evaluation for urinary tract infection and malfunction of suprapubic tube. Suprapubic tube was exchanged on and has had good urinary drainage since then. Minimal drainage from around the catheter at this time. Does have a small amount of sediment present within his catheter, likely related to infection. Blood cultures are without growth. Urine cultures are growing gram-negative rods, 100,000. We will continue meropenem at this time and tailor for culture specific antibiotics. The patient appears to be stable. Would wait for urine culture results to return and then treat with the appropriate antibiotics. Continue suprapubic tube to gravity drainage. The patient's hematuria seems to have resolved as he is having no urethral bleeding at this time. We will continue to monitor. Please call with questions or concerns. cc: MD KWAN Silva
[2018-05-26] MEDS: PERICOLACE PO SCH ×2 (10:53→22:43)
[2018-05-26] MEDS: MERREM 1 GM in NS 50 ML IV SCH ×2 (10:55→16:37)
[2018-05-26] MEDS: FLOMAX PO SCH ×3 (10:57→22:43)
[2018-05-26] MEDS: DESYREL PO SCH (10:57)
[2018-05-26] MEDS: COSOPT OPHTH SOLN BOTH EYES SCH ×5 (10:57→22:43)
[2018-05-26] MEDS: LIORESAL PO SCH ×4 (10:58→22:44)
[2018-05-26] MEDS: NEURONTIN PO SCH ×3 (10:58→22:44)
[2018-05-26] MEDS: PATIENT'S OWN MED PO SCH (10:58)
[2018-05-26] MEDS: THERA M PLUS PO SCH (10:59)
[2018-05-26] MEDS: PAXIL PO SCH (10:59)
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
[2018-05-26] MEDS: XALATAN 0.005% OPH SOLN BOTH EYES SCH ×2 (19:51→22:43)
[2018-05-27] MEDS: MERREM 1 GM in NS 50 ML IV SCH ×2 (00:32→08:37)
[2018-05-27 07:23] LABS: BASO# 0.03 X1000 (0.0-0.2); BASO% 0.2 % (0.0-0.8); EOS# 0.39 X1000 (0.0-0.7); EOS% 2.8 % (0.0-10.0); HEMOGLOBIN 8.7 g/dL (14.0-18.0); IMM GRAN# 0.04 X1000 (0.0-0.04); IMM GRAN% 0.3 % (0.0-0.5); LYMPH# 1.86 X1000 (1.2-3.4); LYMPH% 13.4 % (20.5-51.1); MCH 24.8 PG (27-31); MCHC 31.1 g/dL (33-37); MCV 79.8 FL (81-99); MONO% 10.1 % (1.7-9.3); NEUT# 10.11 X1000 (1.4-6.5); NEUT% 73.2 % (42.2-75.2); PLT 519 X1000 (130-400); RBC 3.51 XMIL (4.7-6.1); RDW 14.5 % (11.5-14.5); WBC 13.83 X1000 (4.8-10.8)
[2018-05-27 07:53] LABS: AGAP 9; ALB/GLOB RATIO 0.7; ALBUMIN 2.9 g/dL (3.5-5.0); ALKALINE PHOSPHATASE 122 U/L (32-122); BUN 5 mg/dL (8-22); CALCIUM 8.8 mg/dL (8.8-10.2); CHLORIDE 105 mmol/L (98-107); COSMO 278; CREATININE 0.8 mg/dL (0.7-1.2); ESTIMATED GFR > 60; GLUCOSE 85 mg/dL (70-104); GOT 14 U/L (10-34); GPT 7 U/L (10-44); POTASSIUM 3.6 mmol/L (3.5-5.1); SODIUM 141 mmol/L (136-145); TCO2 27 mmol/L (25-35); TOTAL BILIRUBIN 0.48 mg/dL (0.20-1.00); TOTAL PROTEIN 6.9 g/dL (6.3-8.3)
[2018-05-27] MEDS: PERICOLACE PO SCH ×2 (08:36→23:20)
[2018-05-27] MEDS: THERA M PLUS PO SCH (08:36)
[2018-05-27] MEDS: NEURONTIN PO SCH ×2 (08:36→20:28)
[2018-05-27] MEDS: LIORESAL PO SCH ×3 (08:36→20:28)
[2018-05-27] MEDS: PAXIL PO SCH (08:37)
[2018-05-27] MEDS: DESYREL PO SCH (08:37)
[2018-05-27] MEDS: COSOPT OPHTH SOLN BOTH EYES SCH ×2 (08:37→20:28)
[2018-05-27] MEDS: FLOMAX PO SCH ×2 (08:37→20:28)
[2018-05-27] MEDS: PATIENT'S OWN MED PO SCH (08:38)
[2018-05-27] MEDS: TYLENOL PO PRN (08:41)
[2018-05-27] MEDS: FLOVENT 220 MICROGM HFA INH SCH ×2 (08:48→19:50)
[2018-05-27 14:56] LABS: INR 1.02; PROTIME 14.2 Seconds (11.0-16.0)
[2018-05-27] MEDS: INVANZ 1 GM/NS 1 GM/50 ML IVPB IV SCH (15:21)
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
--- NOTE | 2018-05-27 20:08 | INFECTIOUS DISEASE CONSULT REP ---
DATE: 05/27/2018 CONCLUSION: Mr. Wilson has an extended spectrum beta lactamase producing Escherichia coli that has grown in his urine. He was also admitted with suprapubic catheter, urine flow issues which have been corrected by Dr. Alcantar. The site of his suprapubic catheter has grown an E coli which is not ESBL producing, and a Proteus mirabilis. RECOMMENDATIONS: The patient has been on meropenem 1 g IV every 8 hours for the last three days. He will need a total of 30 days of treatment for the ESBL producing E coli, due to his history of the same bacteria. Since he lives at [facility], and will be going back soon , we will change his medication to Ertapenem 1gm IV daily in order to accommodate his transfer. This will also cover the Proteus and E coli growing to the suprapubic catheter site. We will order a PICC line to be put in. He is anxious to go back to [facility] to be in his own bed. He should be able to go back once the PICC line is in and arrangements have been made. The orders for the fpc have been written out. These plans have been discussed with and recommended by Dr. Ramos. DISCUSSION: Mr. Wilson is a quadriplegic fpc patient who was brought into the ER due to difficulty with urine flow through his suprapubic catheter. It had been changed out by the nurse and then by the ER doctor without any success. Dr. Alcantar then changed it out and the urine has been flowing without difficulty. However, there is a large amount of sediment in the urine. We have treated him in the past for the same ESBL producing Escherichia coli in his urine back in September 2017, at which time he received ertapenem. LABORATORY AND X-RAY: Today, his white count is 13.83, hemoglobin 8.7, platelet count 519,000. Creatinine is 0.8. Estimated GFR is greater than 60. His most recent urine culture has grown ESBL producing E coli. His blood cultures have been negative after 48 hours and his suprapubic catheter site has grown an E coli which is not ESBL producing and a Proteus mirabilis. REVIEW OF SYSTEMS is difficult. The patient is lethargic and does not remember much that has happened since he has gotten to the hospital. PAST MEDICAL HISTORY: Includes osteoarthritis, chronic obstructive pulmonary disease, hypertension, kidney stones, perinephric abscesses, quadriplegia and contractures, glaucoma with blindness, depression, and iron deficiency anemia. PAST SURGICAL HISTORY: Includes incision, drainage and debridement of a right flank abscess, drain insertion to the right perinephric space in April of last year, cystoscopies with ureteral stent placement and kidney stone removal. INFECTIOUS DISEASE: Positive for pneumonia and multiple urinary tract infections in the past. SOCIAL HISTORY: Mr. Wilson lives at [facility] and is dependent for his care due to quadriplegia. He has a 40 pack year history of cigarette smoking. He has used alcohol in the past, but denies any illicit drugs. FAMILY HISTORY: Positive for coronary artery disease. ALLERGIES: No known allergies. MEDICATIONS: Include Xalatan and Cosopt eye drops, multivitamin, cranberry, Senokot, aspirin, baby aspirin, Flovent, Neurontin, baclofen, Flomax, [place], paroxetine, Tylenol and trazodone. PHYSICAL EXAMINATION: Vital Signs: He has had a temp max of 99.3 on this admission. Most recent vital signs show a temp of 97.9, pulse rate 70, respiratory rate 15 , blood pressure 97/48. O2 sat 99% on 1 L nasal cannula. General: This is a chronically ill- appearing, middle- aged gentleman lying in the bed, currently in no acute distress. HEENT: Atraumatic, normocephalic. Oral mucous membranes are pink and moist. Conjunctivae are pink. Neck: Some decrease in suppleness. Trachea is midline. Cardiovascular: Heart rate and rhythm are regular. Normal sinus rhythm on the monitor. Respiratory: Lung sounds are clear and diminished bilaterally. Abdomen: Soft, round and nontender. Bowel sounds are active. : There is a suprapubic catheter in place with some very mild drainage, but no erythema to the site. Urine is noted to have heavy sediment in the tubing. Integumentary: Skin is warm and dry. Musculoskeletal : He is able to move all extremities minimally and there are multiple contractures noted. Neurologic: He is drowsy and lethargic, but arousable and forgetful. Thank you for allowing us to see Mr. Wilson. Dictated by CHASITY Dockery for Vinay Ramos MD This chart was documented by, CHASITY Dockery and accurately reflects the services performed, treatment plan and medical decisions as attested by the providers signature Vinay Ramos MD. cc: Vinay Ramos MD [facility]
[2018-05-27] MEDS: XALATAN 0.005% OPH SOLN BOTH EYES SCH (20:29)
[2018-05-28 08:12] LABS: BASO# 0.02 X1000 (0.0-0.2); BASO% 0.2 % (0.0-0.8); EOS# 0.46 X1000 (0.0-0.7); EOS% 3.6 % (0.0-10.0); HEMATOCRIT 28.1 % (42.0-52.0); HEMOGLOBIN 8.8 g/dL (14.0-18.0); IMM GRAN# 0.06 X1000 (0.0-0.04); IMM GRAN% 0.5 % (0.0-0.5); LYMPH# 2.26 X1000 (1.2-3.4); LYMPH% 17.7 % (20.5-51.1); MCH 25.1 PG (27-31); MCHC 31.3 g/dL (33-37); MCV 80.3 FL (81-99); MONO# 1.46 X1000 (0.11-0.59); MONO% 11.4 % (1.7-9.3); MPV 9.1 FL (7.4-10.4); NEUT# 8.51 X1000 (1.4-6.5); NEUT% 66.6 % (42.2-75.2); PLT 505 X1000 (130-400); RDW 14.3 % (11.5-14.5); WBC 12.77 X1000 (4.8-10.8)
[2018-05-28] MEDS: FLOVENT 220 MICROGM HFA INH SCH ×2 (08:20→19:25)
[2018-05-28 08:24] LABS: AGAP 10; BUN 7 mg/dL (8-22); CALCIUM 8.4 mg/dL (8.8-10.2); CHLORIDE 103 mmol/L (98-107); COSMO 275; CREATININE 0.7 mg/dL (0.7-1.2); ESTIMATED GFR > 60; GLUCOSE 84 mg/dL (70-104); POTASSIUM 3.6 mmol/L (3.5-5.1); SODIUM 139 mmol/L (136-145); TCO2 26 mmol/L (25-35)
[2018-05-28] MEDS ORDERED: NS 250 ML ONE (08:58)
[2018-05-28] MEDS: PAXIL PO SCH (09:00)
[2018-05-28] MEDS: LIORESAL PO SCH ×3 (09:00→22:45)
[2018-05-28] MEDS: THERA M PLUS PO SCH (09:00)
[2018-05-28] MEDS: FLOMAX PO SCH ×2 (09:00→22:45)
[2018-05-28] MEDS: NEURONTIN PO SCH ×2 (09:00→22:46)
[2018-05-28] MEDS: DESYREL PO SCH (09:00)
[2018-05-28] MEDS: COSOPT OPHTH SOLN BOTH EYES SCH ×2 (09:00→22:47)
[2018-05-28] MEDS: PERICOLACE PO SCH ×2 (09:00→22:45)
[2018-05-28] MEDS: PATIENT'S OWN MED PO SCH (09:01)
--- NOTE | 2018-05-28 09:54 | PROGRESS NOTE ---
DATE: 05/28/2018 SUBJECTIVE: No acute events overnight. Patient remains afebrile. His suprapubic tube is draining well with yellow urine. There is a small amount of sediment present within the catheter itself. No evidence of any bleeding from the urethra. Minimal drainage around the catheter. In talking with him, he denies any pain and is tolerating a diet. OBJECTIVE: Vital signs: Temperature 98.1 degrees, pulse 70, blood pressure 108 /64, oxygen saturation 97% on room air. General: No acute distress. Resting comfortably in bed. Respiratory: Good respiratory effort without audible wheezing or rales. Cardiovascular: No evidence of lower extremity edema. Abdomen: Soft, nontender, nondistended. : No suprapubic tenderness. Suprapubic catheter in place draining yellowish urine with a small amount of sediment present. The phallus is slightly edematous, but no evidence of any urethral bleeding. Neurologic: Quadriplegia with contractures upper and lower extremities. LABORATORIES: Microbiology shows two positive cultures. Urine culture growing E. coli and then another culture from the abdomen, which has grown Proteus and E. coli. ASSESSMENT AND PLAN: Mr. Wilson is a 57-year-old with history of neurogenic bladder and a spinal cord injury, sacral decubitus ulcers, nephrolithiasis, who presents in consult for difficulty with suprapubic tube drainage. I exchanged the suprapubic tube last and the patient is doing well since then. The patient has had a positive urine culture growing E. coli with negative blood cultures. The patient is scheduled to get a PICC line placed today and be sent out with antibiotics per Infectious Disease. Overall, I think patient is doing well. His labs have all been within normal limits. His vital signs have been stable. Recommended him to complete a course of antibiotics and likely would need to have his suprapubic tube exchanged monthly, which has been previously done at his facility. The patient is scheduled to follow up in Urology Clinic with Dr. Quintero. Please call with questions or concerns. cc: Yandel Alcantar MD [facility]
[2018-05-28] MEDS: INVANZ 1 GM/NS 1 GM/50 ML IVPB IV SCH (14:59)
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
--- NOTE | 2018-05-28 19:29 | Diag Imaging Result Doc PS360 ---
EXAM: CHEST-PORTABLE HISTORY: Rehab placement TECHNIQUE: Portable chest COMPARISON: 10/09/2017 FINDINGS: Poor inspiratory effort. The patient is rotated to the left. No cardiomegaly. No pleural effusions identified. Interstitial markings are similar to the prior study. There is a left-sided PICC line. IMPRESSION: No acute abnormality. Electronically signed by Lexa Campa 05/28/2018 7:27 PM
[2018-05-28] MEDS: XALATAN 0.005% OPH SOLN BOTH EYES SCH (22:47)
[2018-05-28] MEDS: NORCO-5 PO PRN (22:57)
[2018-05-29] MEDS: DESYREL PO SCH (08:37)
[2018-05-29] MEDS: PERICOLACE PO SCH (08:37)
[2018-05-29] MEDS: NORCO-5 PO PRN ×2 (08:37→18:19)
[2018-05-29] MEDS: PAXIL PO SCH (08:38)
[2018-05-29] MEDS: FLOMAX PO SCH (08:38)
[2018-05-29] MEDS: COSOPT OPHTH SOLN BOTH EYES SCH (08:38)
[2018-05-29] MEDS: THERA M PLUS PO SCH (08:38)
[2018-05-29] MEDS: NEURONTIN PO SCH (08:38)
[2018-05-29] MEDS: PATIENT'S OWN MED PO SCH (08:38)
[2018-05-29] MEDS: LIORESAL PO SCH ×2 (08:38→13:02)
[2018-05-29] MEDS: FLOVENT 220 MICROGM HFA INH SCH (08:39)
[2018-05-29] MEDS: INVANZ 1 GM/NS 1 GM/50 ML IVPB IV SCH (14:50)
--- NOTE | 2018-05-29 15:57 | PROGRESS NOTE ---
DATE: 05/29/2018 SUBJECTIVE: Mr. Wilson was sleeping, easy to arouse. Says he feels comfortable. OBJECTIVE: Vital signs: Remains afebrile, temp 98.1 degrees, pulse 73, respirations 20, blood pressure 160/67. HEENT: Pupils equal and round. Lungs: Clear in all lung morgan. Cardiovascular: Regular rhythm and rate without murmur or S3. Abdomen: Soft. Skin: Warm and dry. Urine output is 1500 mL. IMAGING: Chest x-ray from yesterday: PICC line in good placement. The patient was rotated to the left. No cardiomegaly. No pleural effusions. Interstitial markings about the same as the previous study. ASSESSMENT AND PLAN: 1. Quadriplegic with neurogenic bladder, spinal cord injury, sacral decubitus, ulcers, nephrolithiasis, difficulty in putting his suprapubic tube back in and reposition by the urologist. He had positive urine culture for E. coli. Negative blood cultures. He had a PICC line placement and we will continue his ertapenem. He should be ready to go back to [facility]. We will plan on discharging him in the morning. 2. Urinary tract infection, extended spectrum beta lactamase Escherichia coli. So continue ertapenem 1 g daily. So, he will receive 4 weeks of ertapenem. 3. Malfunction suprapubic catheter which has been replaced and functioning well. 4. Quadriplegia and neurogenic bladder. 5. Hypokalemia which has been resolved, supplemented. 6. White count has come down nicely, so hope to get him to [facility] tomorrow. White count was down to 12,770, hematocrit was 28, hemoglobin 8.8, platelet count 505,000. Chemistry: Sodium 139, potassium 3.6, chloride 103, BUN 7, creatinine 0.7. cc: Benjamin Alexander MD
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
[2018-05-29 16:49] VITALS: BP 97/59
== END 2018-05-29 19:23 | DRG 871 ==
LOC: SUPCPDRO → ED 15:59 → SUATTDRO 22:28 → 3N 22:28
PROVIDERS: ATTEND Emergency Medicine
CPT/HCPCS: 36569; 51798; 71010; 71045; 74000; 74018; 80048; 80053; 81001; 82948; 83605; 85025; 85610; 85730; 87040; 87070; 87077; 87088; 87186; 93005; 93010; 94640; 94761; 94799; 96365; 99284; 99285; A9270; J0696; J1335; J2185; J7030; J7050; XXXXX

== ENCOUNTER 2019-02-23 15:00 | Inpatient (IN) ==
[2019-02-23] MEDS ORDERED: NS 1,000 ML IV ONE ×2 (17:13→18:17)
[2019-02-23] MEDS ORDERED: NS 1,000 ML ONE (17:17)
[2019-02-23 18:14] LABS: BASO# 0.04 X1000 (0.0-0.2); BASO% 0.1 % (0.0-0.8); EOS# 0.01 X1000 (0.0-0.7); HEMATOCRIT 25.8 % (42.0-52.0); HEMOGLOBIN 8.4 g/dL (14.0-18.0); IMM GRAN# 0.23 X1000 (0.0-0.04); IMM GRAN% 0.7 % (0.0-0.5); LYMPH# 1.57 X1000 (1.2-3.4); LYMPH% 4.5 % (20.5-51.1); MCH 23.2 PG (27-31); MCHC 32.6 g/dL (33-37); MCV 71.3 FL (81-99); MONO# 2.04 X1000 (0.11-0.59); MONO% 5.9 % (1.7-9.3); MPV 9.4 FL (7.4-10.4); NEUT# 30.96 X1000 (1.4-6.5); NEUT% 88.8 % (42.2-75.2); PLT 623 X1000 (130-400); RBC 3.62 XMIL (4.7-6.1); RDW 14.4 % (11.5-14.5); WBC 34.85 X1000 (4.8-10.8)
[2019-02-23] MEDS ORDERED: ZOSYN 3.375 GM in NS 50 ML IV ONE (18:17)
[2019-02-23] MEDS ORDERED: VANCOMYCIN 1 GM/NS 1 GM/250 ML IVPB IV ONE (18:17)
[2019-02-23 18:18] LABS: ALB/GLOB RATIO 0.4; ALBUMIN 2.1 g/dL (3.5-5.0); CALCIUM 8.3 mg/dL (8.8-10.2); CREATININE 1.9 mg/dL (0.7-1.2); TOTAL BILIRUBIN 2.01 mg/dL (0.20-1.00); TOTAL PROTEIN 7.4 g/dL (6.3-8.3)
[2019-02-23 18:23] LABS: URINE SOURCE CATH
[2019-02-23 18:34] LABS: BILIRUBIN URINE NEGATIVE (NEGATIVE); BLOOD URINE MODERATE (NEGATIVE); COLOR ORANGE; GLUCOSE URINE NEGATIVE (NEGATIVE); KETONE URINE NEGATIVE (NEGATIVE); LEUKOCYTES URINE LARGE (NEGATIVE); NITRITE URINE NEGATIVE (NEGATIVE); PROTEIN URINE 300 mg/dL (NEGATIVE); SP GRAVITY URINE 1.017; TURBIDITY URINE TURBID (CLEAR); UROBILINOGEN URINE 6 mg/dL (NORMAL)
[2019-02-23 18:35] LABS: UR EPITHELIAL CELLS >10 /HPF (<10); URINE BACTERIA 4+ /HPF; URINE RBC TNTC /HPF (<10); URINE WBC TNTC /HPF (<10)
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
[2019-02-23] MEDS ORDERED: LEVOPHED 8 MG in D5 1/2 NS 250 ML IV SCH (22:15)
[2019-02-24] MEDS ORDERED: DOPAMINE 800 MG/D5W 800 MG/500 ML IV.SOLN IV SCH (01:15)
[2019-02-24] MEDS ORDERED: ZOFRAN IV PRN (02:31)
[2019-02-24] MEDS ORDERED: TUMS PO PRN (02:31)
[2019-02-24] MEDS ORDERED: DULCOLAX PR PRN (02:31)
[2019-02-24] MEDS ORDERED: VANCOMYCIN IV PER PHARMACY MISC SCH (02:31)
[2019-02-24] MEDS: ZOSYN 3.375 GM in NS 50 ML IV SCH ×2 (04:03→08:17)
[2019-02-24] MEDS: NS 1,000 ML IV SCH ×3 (04:03→21:29)
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
[2019-02-24] MEDS ORDERED: VANCOMYCIN IV ONE (04:30)
[2019-02-24] MEDS ORDERED: NS IV ONE (04:30)
[2019-02-24 06:28] LABS: BASO# 0.04 X1000 (0.0-0.2); BASO% 0.1 % (0.0-0.8); EOS# 0.09 X1000 (0.0-0.7); EOS% 0.3 % (0.0-10.0); HEMOGLOBIN 8.9 g/dL (14.0-18.0); IMM GRAN# 0.25 X1000 (0.0-0.04); IMM GRAN% 0.8 % (0.0-0.5); LYMPH# 1.02 X1000 (1.2-3.4); LYMPH% 3.4 % (20.5-51.1); MCH 23.3 PG (27-31); MCV 70.7 FL (81-99); MONO# 0.92 X1000 (0.11-0.59); MONO% 3.1 % (1.7-9.3); MPV 9.3 FL (7.4-10.4); NEUT# 27.74 X1000 (1.4-6.5); NEUT% 92.3 % (42.2-75.2); PLT 531 X1000 (130-400); RBC 3.82 XMIL (4.7-6.1); RDW 14.3 % (11.5-14.5); WBC 30.06 X1000 (4.8-10.8)
[2019-02-24 06:57] LABS: CALCIUM 7.7 mg/dL (8.8-10.2); CREATININE 1.5 mg/dL (0.7-1.2); POTASSIUM 3.2 mmol/L (3.5-5.1)
--- NOTE | 2019-02-24 07:02 | Diag Imaging Result Doc PS360 ---
EXAM: CHEST-PORTABLE 02/24/2019 HISTORY: central line placement TECHNIQUE: AP portable at 0109 COMMENT: There is a right internal jugular central venous catheter with its tip in the superior vena cava. The appearance of the chest has not changed appreciably considering differences in inspiration and technique since 05/28/2018. IMPRESSION: Stable chest. Electronically signed by Maninder Muñoz 02/24/2019 7:00 AM
[2019-02-24 07:26] LABS: BANDS 4 % (0-1); EOS 1 % (1-10); HYPOCHROM 1+; LYMPHS 4 % (21-51); MICROCYTOSIS 1+; MONO 3 % (1-9); SEGS 88 % (42-75)
[2019-02-24] MEDS: ASPIRIN PO SCH (08:15)
[2019-02-24] MEDS: PAXIL PO SCH (08:16)
--- NOTE | 2019-02-24 11:21 | PROGRESS NOTE ---
DATE: 02/24/2019 SUBJECTIVE: This morning, Mr. Wilson refers to be doing well. He denies any new complaints. He does not remember why he was brought to the hospital. Mr. Wilson is a resident of [facility]. He has had multiple admissions to this hospital, was last discharged here on 05/29/2018. At that time, he got admitted also because of catheter-related urinary tract infection. This time around, he got admitted because of altered mental status, and I understand, an abscess to his back. This morning, he is more alert. He is more conversational. OBJECTIVE: Current Vital Signs: Blood pressure is 110/60, pulse of 87, respirations 12, temperature 97 degrees, the patient is saturating 95%. General: Mr. Wilson is a 58-year-old gentleman. He is in bed. He is contracted, in a position. HEENT: Mucosa is slightly dry. Anicteric. Acyanotic. Neck: Supple. Chest: Good air entry bilaterally. There were no crepitations. Cardiovascular: Regular rate and rhythm. Abdomen: Soft. It is kind of distended. There is some edema on the lateral aspect of the abdominal wall and the upper thighs. He is remarkably wasted. Genitourinary: There is a suprapubic catheter in place. Extremities: Trace pedal edema. [employer]: The patient is sleepy, but easily arousable and conversational. LABORATORY DATA: WBC is 30.06, hemoglobin is 8.9, platelet count of 523,000. There are 4% bands on the peripheral smear. Chemistry is also reviewed. Potassium is 3.2, creatinine is 1.5, calcium is 7.0. Rest of chemistry is unremarkable. Urinalysis yesterday was very abnormal with too numerous to count WBCs, with a large leukocyte. ASSESSMENT: 1. Shock on presentation, most likely septic in etiology. Patient still hypotensive on pressor. 2. Recurrent catheter-associated urinary tract infection with multiple cultures in the past showing Providencia stuartii, Klebsiella, Escherichia coli, occasional extended spectrum beta- lactamase. I have changed his current Zosyn to ertapenem to cover extended spectrum beta- lactamase as well. 3. Altered mental status on presentation, presumably sepsis induced. 4. Acute kidney injury, improving with adequate hydration. 5. History of quadriplegia. Noted. 6. 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 Will get dietitian to evaluate him as well. cc: Camilo Sanchez MD MTDD
[2019-02-24] MEDS: INVANZ 1 GM/NS 1 GM/50 ML IVPB IV SCH (11:41)
[2019-02-24] MEDS: XALATAN 0.005% OPH SOLN BOTH EYES SCH (20:16)
[2019-02-25] MEDS: TYLENOL PO PRN ×2 (02:21→23:37)
[2019-02-25] MEDS: LIORESAL PO PRN ×2 (02:21→23:37)
[2019-02-25 05:18] LABS: BASO# 0.02 X1000 (0.0-0.2); BASO% 0.1 % (0.0-0.8); EOS# 0.45 X1000 (0.0-0.7); EOS% 1.9 % (0.0-10.0); HEMATOCRIT 20.6 % (42.0-52.0); HEMOGLOBIN 6.6 g/dL (14.0-18.0); IMM GRAN# 0.19 X1000 (0.0-0.04); IMM GRAN% 0.8 % (0.0-0.5); LYMPH# 1.32 X1000 (1.2-3.4); LYMPH% 5.5 % (20.5-51.1); MCH 22.8 PG (27-31); MONO# 0.77 X1000 (0.11-0.59); MONO% 3.2 % (1.7-9.3); MPV 9.5 FL (7.4-10.4); NEUT# 21.15 X1000 (1.4-6.5); NEUT% 88.5 % (42.2-75.2); PLT 510 X1000 (130-400); RDW 14.2 % (11.5-14.5)
[2019-02-25 05:33] LABS: AGAP 10; ALB/GLOB RATIO 0.5; ALBUMIN 1.8 g/dL (3.5-5.0); ALKALINE PHOSPHATASE 113 U/L (32-122); BUN 19 mg/dL (8-22); CALCIUM 7.5 mg/dL (8.8-10.2); CHLORIDE 107 mmol/L (98-107); COSMO 282; ESTIMATED GFR > 60; GLUCOSE 107 mg/dL (70-104); GOT 23 U/L (10-34); GPT 15 U/L (10-44); MAGNESIUM 1.9 mg/dL (1.5-2.7); PHOSPHORUS 1.3 mg/dL (2.7-4.5); POTASSIUM 2.7 mmol/L (3.5-5.1); SODIUM 140 mmol/L (136-145); TCO2 23 mmol/L (25-35); TOTAL BILIRUBIN 0.54 mg/dL (0.20-1.00); TOTAL PROTEIN 5.6 g/dL (6.3-8.3)
[2019-02-25] MEDS ORDERED: POTASSIUM CHLORIDE 40 MEQ/SWI 40 MEQ/100 ML IVPB IV ONE (06:45)
[2019-02-25 07:38] LABS: BANDS 2 % (0-1); EOS 1 % (1-10); LYMPHS 4 % (21-51); SEGS 93 % (42-75)
[2019-02-25] MEDS ORDERED: MAGNESIUM SULFATE 2 GM/S.W.I. 2 GM/50 ML IVPB IV ONE (07:43)
[2019-02-25] MEDS ORDERED: POTASSIUM PHOSPHATE 60 MEQ in NS 250 ML IV ONE (07:43)
[2019-02-25] MEDS ORDERED: NS 500 ML IV ONE (07:43)
[2019-02-25] MEDS: ASPIRIN PO SCH (08:09)
[2019-02-25] MEDS: PAXIL PO SCH (08:09)
[2019-02-25] MEDS: NS 1,000 ML IV SCH ×2 (08:10→19:38)
[2019-02-25] MEDS: INVANZ 1 GM/NS 1 GM/50 ML IVPB IV SCH (11:45)
--- NOTE | 2019-02-25 15:35 | PROGRESS NOTE ---
DATE: 02/25/2019 SUBJECTIVE: Today Mr. Wilson refers to be doing fairly okay. Per the nursing staff, his right back has been draining nonstop some purulent material. OBJECTIVE: Vital signs: Blood pressure is 115/67, pulse of 56, respiration is 18, temperature is 97.2 degrees. General: Mr. Wilson is a 58-year-old gentleman. He is in bed. He is in the position. He looks remarkably malnourished. HEENT: Mucosa is pink and moist. Anicteric. Acyanotic. Neck: Supple. Chest: Air entry is bilaterally reduced. A few crackles posteriorly. Cardiovascular: Regular rate and rhythm. GI: Abdomen is soft. It is distended. There is edema on the lateral aspect of the abdominal wall. There is a suprapubic catheter in place and an umbilical hernia noted. ONCOLOGIST: Patient is awake, alert, and oriented. He is in the position. He is not able to move the upper and lower extremities because of longstanding neurological damage. Back: There is a laceration on the right CVA which is draining some purulent material. LABORATORY DATA: WBC is 23.90, hemoglobin is 6.6, platelet count of 510,000. Chemistry is also reviewed. Potassium is 2.7, phosphorus is 1.3. So far urine is showing gram-positive cocci. The patient is currently on ertapenem and vancomycin per pharmacy protocol. ASSESSMENT: 1. Septic shock on presentation. The patient continues to be on minimum pressors. Vitals are much better, stable now. 2. Recurrent catheter-associated urinary tract infection with multiple different pathogens in the past in the urine culture. The patient is currently on ertapenem and vancomycin. 3. Spontaneous draining abscess to the right costophrenic angle. Mr. Wilson had an incision and drainage to the right flank from abscess and placement of a tube because of a right paraphrenic space abscess in April of this year. It appears to me that there has been reaccumulation of an abscess and it has spontaneously been draining. We are going to get a CT scan of the abdomen to make sure the kidney itself is not affected as well. 4. Altered mental status on presentation secondary to global encephalopathy from sepsis, improved. 5. Acute kidney injury, resolved. 6. Wasting syndrome. 7. Protein calorie malnutrition. Dietitian is on board. 8. History of quadriplegia. 9. Electrolyte abnormality including hypokalemia, hypophosphatemia. We will continue to replace. 10. Microcytic anemia of chronic disease. The patient's hemoglobin is down to 6.6 this morning. He is going to be transfused a unit of PRBC. cc: Camilo Sanchez MD Critical time spent 45 minutes MTDD
--- NOTE | 2019-02-25 15:52 | Diag Imaging Result Doc PS360 ---
EXAM: CT ABD/PELVIS W/IV CONT ONLY INDICATION: right flank abscess. TECHNIQUE: This exam was performed using automated exposure control, adjustment of mA or kV according to patient size, and/or use of iterative reconstruction technique. COMPARISON: 07/17/2018 FINDINGS: There is left basilar scarring and subsegmental atelectasis. A component of mild pneumonia at the left lung base is possible in the right clinical scenario. There is trace pleural fluid bilaterally. There is mild subsegmental atelectasis at the medial right lung base. There appears to have been a prior cholecystectomy. The liver, spleen, pancreas, and adrenal glands are grossly unremarkable. There are large calyceal stones at the posterior aspect of both kidneys. At the left UPJ, there is an obstructing 8.1 mm stone. There is fairly severe hydronephrosis on the right and moderate hydronephrosis on the left. However, on the right, no obstructing stone is identified. There is urothelial enhancement associated with both ureters and both renal pelvises that is more prominent on the right suggesting possible pyelitis. There are a couple of droplets of gas within the right renal pelvis but this could be due to catheterization. A suprapubic catheter is in place and the urinary bladder is nondistended. The prostate is markedly enlarged and nodular and very heterogeneous, stable. There is a rectal fecal impaction. The diameter of the impacted rectum measures up to 9.8 cm. The appendix is normal. No focal bowel wall thickening is identified. The remainder of the GI tract is essentially unremarkable. There is spondylosis. There is severe degenerative arthropathy involving both hips, especially on the right. IMPRESSION: 1.Bilateral nephrolithiasis with an obstructing stone at the left UPJ as described. 2.Although no obstructing stone is identified on the right, there is fairly severe right hydronephrosis. 3.Renal and ureteral urothelial enhancement bilaterally, more prominent on the right suggesting infection. There are gas droplets in the right renal pelvis but this could be due to catheterization. No well-defined perinephric abscess can be identified. 4.Rectal fecal impaction. 5.Bilateral small effusions with left basilar scarring and atelectasis. A component of mild pneumonia at the left lung base cannot completely be excluded. 6.Other incidental/nonacute findings detailed above. Electronically signed by Gio Cheek 02/25/2019 3:46 PM
[2019-02-25] MEDS ORDERED: FLEET ENEMA PR ONE (17:20)
[2019-02-25] MEDS ORDERED: CATHFLO IV ONE (17:20)
[2019-02-25] MEDS ORDERED: STERILE WATER INJ. INJ ONE (17:20)
[2019-02-25] MEDS: MIRALAX PO SCH (17:48)
[2019-02-25] MEDS: VANCOMYCIN 1 GM/NS 1 GM/250 ML IVPB IV SCH (19:18)
[2019-02-25] MEDS: XALATAN 0.005% OPH SOLN BOTH EYES SCH (20:00)
[2019-02-25] MEDS ORDERED: VANCOMYCIN 1 GM/NS 1 GM/250 ML IVPB IV SCH (20:00)
--- NOTE | 2019-02-25 23:54 | CONSULTATION ---
DATE OF CONSULTATION: 02/25/2019 ATTENDING AND REFERRING PHYSICIAN: Emekaist. HISTORY OF PRESENT ILLNESS: This 58-year-old male with long history of renal lithiasis and C4 quadriplegia was admitted with septic syndrome. The patient has had multiple procedures for kidney stones and renal abscesses. The patient was noted to have drainage from his right flank and the nurses state it is like the urine draining out of the suprapubic tube. A CT scan of the abdomen and pelvis revealed small bilateral kidney stones with a stone at the left UPJ with significant obstruction and right hydronephrosis but an obstructing stone is not visualized. There is also a possible right flank abscess and significant rectal stool impaction noted. The patient was admitted to the intensive care unit and started on IV antibiotics. He states he is feeling better. PAST MEDICAL HISTORY: Incomplete C4 quadriplegia, hypertension, recurrent urinary infections, history of sacral decubitus ulcers, gastroesophageal reflux disease, blindness secondary to glaucoma. CURRENT MEDICATIONS: Documented on the chart. PAST SURGICAL HISTORY: Suprapubic tube placement, cystoscopic exam and placement of a right double-J stent with subsequent removal, several stone procedures at [facility] by history, open drainage of a right flank abscess. SOCIAL HISTORY: No tobacco or alcohol use. He lives in a long term. ALLERGIES: No known drug allergies. REVIEW OF SYSTEMS: He states he is feeling better. He states he has drainage from his right flank and has for several days. He denies any problems with heart disease, strokes, or seizures. PHYSICAL EXAMINATION: General: A thin, age apparent, normally developed, black male, with flexion contractures of the lower and upper extremities consistent with quadriplegia. Lungs: Clear anteriorly. Cardiovascular: Regular rate and rhythm. Abdomen: Protuberant, soft. No hepatosplenomegaly or masses. Normal bowel sounds. Suprapubic tube in place draining clear urine. Back: Drainage from right flank. : Normal male. Both testes are down and atrophic. Rectal: Deferred until surgery. Extremities: No C, C or E. Neuro: Consistent with partial C4 paraplegia. LABORATORY EVALUATION: Has a white count of 23.9, hemoglobin of 6.6, hematocrit of 20.6, platelets 510,000. Serum electrolytes have a sodium of 140, potassium 3.4, chloride 107, bicarb 23, BUN 19, creatinine 1.0. CT scan is as noted in the history of present illness. IMPRESSION: 1. Multiple medical problems. 2. 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 3. Left and right hydronephrosis. 4. Bilateral renal stones. 5. Stool impaction. RECOMMEND: Cystoscopic exam. Attempt placement of bilateral double-J stents. The planned procedure, benefits versus risks, and possible complications, including, but not limited to, bleeding, continued infection, not being able to place the stents, need for further procedures was discussed. He seems to understand and desires to proceed. cc: Harjinder Quintero MD MTDD
[2019-02-26] MEDS ORDERED: CALMOSEPTINE OINTMENT TOP PRN (01:07)
[2019-02-26] MEDS: NS 1,000 ML IV SCH ×2 (04:46→15:00)
[2019-02-26 05:22] LABS: HEMATOCRIT 26.9 % (42.0-52.0); HEMOGLOBIN 8.9 g/dL (14.0-18.0); MCH 23.9 PG (27-31); MCHC 33.1 g/dL (33-37); MCV 72.1 FL (81-99); MPV 9.5 FL (7.4-10.4); RBC 3.73 XMIL (4.7-6.1); RDW 15.5 % (11.5-14.5); WBC 20.91 X1000 (4.8-10.8)
[2019-02-26 05:32] LABS: AGAP 11; ALBUMIN 1.9 g/dL (3.5-5.0); BUN 12 mg/dL (8-22); CALCIUM 7.5 mg/dL (8.8-10.2); CHLORIDE 110 mmol/L (98-107); COSMO 283; ESTIMATED GFR > 60; GLUCOSE 64 mg/dL (70-104); PHOSPHORUS 2.3 mg/dL (2.7-4.5); SODIUM 143 mmol/L (136-145); TCO2 22 mmol/L (25-35)
[2019-02-26] MEDS ORDERED: POTASSIUM PHOSPHATE 60 MEQ in NS 250 ML IV ONE (05:47)
[2019-02-26] MEDS ORDERED: DIPRIVAN 1% ONE (08:29)
[2019-02-26] MEDS ORDERED: XYLOCAINE-MPF 2% ONE (08:30)
[2019-02-26] MEDS: INVANZ 1 GM/NS 1 GM/50 ML IVPB IV SCH (11:10)
[2019-02-26] MEDS ORDERED: AK-FLUOR ONE (11:37)
--- NOTE | 2019-02-26 12:25 | Diag Imaging Result Doc PS360 ---
FLUROSCOPY CYSTO - 02/26/2019 INDICATION: BILAT STENT PLACEMENT TECHNIQUE: Fluoroscopy and multiple views of the abdomen. The exam was performed by the patient's urologist. 29 images were obtained. COMPARISON: CT from 02/25/2019 FINDINGS: Bilateral nephroureteral stent placement was performed. The stents are in good position. IMPRESSION: No complication. Electronically signed by Irving Coronaod 02/26/2019 12:23 PM
--- NOTE | 2019-02-26 15:30 | PROGRESS NOTE ---
DATE: 02/26/2019 SUBJECTIVE: This morning Mr. Cardenas referred to be doing okay. He just came from a urological intervention where I think double-J stents were placed for which we are still waiting for the official surgical notes. OBJECTIVE: Vital signs: Blood pressure is 126/70, pulse of 69, respirations 16 and temperature 97.6 degrees. General exam: Mr. Mendoza is a 58-year-old gentleman. He is in bed in no distress. HEENT: Mucosa is pink and moist. He looks remarkably emaciated. Neck: Supple. Chest: Good air entry bilateral. Cardiovascular: Regular rate and rhythm. No murmurs. GI: Abdomen is soft, is distended. There is edema on the lateral aspect of the abdominal wall. There is a suprapubic catheter in place. Mild umbilical hernia noted. SKIRT MAKER: Patient is awake, alert. Follow basic commands. He is quadriplegic. Skin: On the back, there is laceration on the right CVA, which continues to drain some purulence. LABS: So far, the urine culture has grown enterococcal faecalis. The back is growing gram- positive cocci twice. IMAGING STUDIES: Imaging studies, which was done yesterday, suggested bilateral nephrolithiasis with obstructing stone at the left UPJ. Although no stone obstruction is identified on the right, there is fairly severe right hydronephrosis. There is ureteral enhancement bilaterally, more prominent on the right suggesting infection. There is a rectal fecal impaction. ASSESSMENT: 1. Septic shock on presentation. The patient is currently off the dopamine pressor. 2. Recurrent catheter-associated urinary tract infection. Urine culture has grown Enterococcus faecalis. The patient is currently on vancomycin and ertapenem. We have discontinued the ertapenem. We will get Infectious Disease to also see the patient. 3. Spontaneous Abscess draining through the back likely from a perinephric abscess. 4. Bilateral hydronephrosis with hydroureter. Patient is status post urological intervention. I think double-J stents have been placed in both ureters. We are waiting on the official report. 5. Altered mental status on presentation, improved. 6. Acute kidney injury on admission, resolved. 7. Protein calorie malnutrition with wasting syndrome. 8. Electrolyte abnormality. We will continue to replace. 9. Microcytic anemia of chronic disease. Patient is status post 1 packed red blood cell transfusion. Hemoglobin and hematocrit is better. PLAN: So, in general, I think Mr. Cardenas is doing well. His blood culture is negative. The urine culture has grown Enterococcus faecalis and the culture from the back is growing gram-positive cocci x2. We will discontinue the ertapenem. The patient will continue on the vancomycin. WBC is trending down. We will consult ID to help us with the antimicrobial therapy. cc: Camilo Sanchez MD MTDD
[2019-02-26] MEDS: MIRALAX PO SCH (17:10)
[2019-02-26] MEDS: ASPIRIN PO SCH (17:10)
[2019-02-26] MEDS: PAXIL PO SCH (17:10)
[2019-02-26] MEDS: CLINIMIX E 4.25%-5% SOLUTION 1,000 ML IV SCH (17:12)
[2019-02-26] MEDS: VANCOMYCIN 1 GM/NS 1 GM/250 ML IVPB IV SCH (17:12)
[2019-02-26] MEDS: LIPOSYN 20% 250 ML IV SCH (17:12)
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
[2019-02-26] MEDS: XALATAN 0.005% OPH SOLN BOTH EYES SCH (20:17)
[2019-02-27 05:46] LABS: HEMATOCRIT 27.1 % (42.0-52.0); HEMOGLOBIN 8.9 g/dL (14.0-18.0); MCH 23.9 PG (27-31); MCHC 32.8 g/dL (33-37); MCV 72.7 FL (81-99); MPV 9.4 FL (7.4-10.4); RBC 3.73 XMIL (4.7-6.1); RDW 16.2 % (11.5-14.5); WBC 17.79 X1000 (4.8-10.8)
[2019-02-27 07:04] LABS: AGAP 15; ALBUMIN 1.8 g/dL (3.5-5.0); BUN 11 mg/dL (8-22); CALCIUM 7.6 mg/dL (8.8-10.2); CHLORIDE 107 mmol/L (98-107); COSMO 278; CREATININE 0.8 mg/dL (0.7-1.2); ESTIMATED GFR > 60; GLUCOSE 82 mg/dL (70-104); PHOSPHORUS 2.8 mg/dL (2.7-4.5); SODIUM 140 mmol/L (136-145); TCO2 18 mmol/L (25-35)
[2019-02-27] MEDS ORDERED: POTASSIUM CHLORIDE 40 MEQ/SWI 40 MEQ/100 ML IVPB IV ONE (08:38)
[2019-02-27] MEDS: PAXIL PO SCH (10:00)
[2019-02-27] MEDS: MIRALAX PO SCH (10:00)
[2019-02-27] MEDS: NS 1,000 ML IV SCH (10:00)
[2019-02-27] MEDS: MAXIPIME 1 GM in NS 50 ML IV SCH ×2 (10:00→17:49)
[2019-02-27] MEDS: ASPIRIN PO SCH (10:00)
--- NOTE | 2019-02-27 10:59 | PROGRESS NOTE ---
DATE: 02/27/2019 SUBJECTIVE: Mr. Wilson was awake and he is alert. He wanted me to help him with some phone calls. He does feel better. PHYSICAL EXAMINATION: Vital Signs: He remains afebrile, temperature was 99.2 degrees, pulse 80, respirations 23, blood pressure 129/75. HEENT: Pupils are equal and round. Lungs: Clear in all lung morgan. Cardiovascular: Regular rhythm and rate without murmur or S3. Abdomen: Soft. Skin: Warm and dry. Urine output was 4000 mL. ASSESSMENT AND PLAN: 1. Presented with septic shock on presentation. He is off his dopamine pressor. 2. Recurrent catheter associated urinary tract infection. Urine culture grew out Enterococcus faecalis. He is on vancomycin and ertapenem, and I think we discontinue ertapenem. Infectious Disease is following the patient as well. 3. Spontaneous abscess draining from the back, likely from perinephric abscess. 4. Bilateral hydronephrosis and hydroureter. The patient is status post urologic intervention and I think he has 2 double-J stents placed. 5. Altered mental status, improved. 6. Acute kidney injury on admission, resolved. 7. Protein calorie malnutrition and wasting syndrome. 8. Electrolyte abnormality. Continue to supplement as needed. 9. Microcytic anemia of chronic disease. He has received 1 pack of packed red blood cells. REVIEW OF HIS ORDERS: He is on aspirin 81 mg a day, getting Clinimix at 50 mL an hour, vancomycin 1 g IV q.24 hours, Paxil 10 mg a day, and polyethylene glycol 17 p.o. daily. LABORATORY DATA: From this morning, white count 38495, which has come down to 17,790, hematocrit 27, platelet count 573,000. Electrolytes: Sodium 140, potassium 3.0, chloride 107, BUN 11, creatinine 0.8, and his albumin is 1.8. He did receive some potassium yesterday. I will give him some more today. cc: Benjamin Alexander MD
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
[2019-02-27] MEDS: CLINIMIX E 4.25%-5% SOLUTION 1,000 ML IV SCH (13:44)
[2019-02-27] MEDS: LIPOSYN 20% 250 ML IV SCH (17:48)
[2019-02-27] MEDS: VANCOMYCIN 1 GM/NS 1 GM/250 ML IVPB IV SCH (19:07)
[2019-02-27] MEDS: XALATAN 0.005% OPH SOLN BOTH EYES SCH (20:14)
[2019-02-28] MEDS: MAXIPIME 1 GM in NS 50 ML IV SCH ×3 (04:28→17:11)
[2019-02-28] MEDS: PAXIL PO SCH (08:07)
[2019-02-28] MEDS: ASPIRIN PO SCH (08:07)
[2019-02-28] MEDS: MIRALAX PO SCH (08:08)
[2019-02-28] MEDS: CLINIMIX E 4.25%-5% SOLUTION 1,000 ML IV SCH (08:12)
--- NOTE | 2019-02-28 09:57 | INFECTIOUS DISEASE PROGRESS NO ---
DATE: 02/28/2019 PRESENT ILLNESS: Mr. Wilson is being treated for an enterococcal urinary tract infection. There was also a perinephric fistula which is growing enterococcus and staphylococcus. He also has a possibility of a pneumonia as seen on CT. MEDICATIONS: He is receiving cefepime 1 g IV every 8 hours and vancomycin IV per pharmacy dosing. PHYSICAL EXAMINATION: Vital Signs: Temperature is 98.7 degrees, pulse rate 73, respiratory rate 19, blood pressure 141/79, O2 saturation is 100% on room air. General: This is a chronically ill- appearing, middle-aged gentleman. He is lying in bed, currently in no acute distress. HEENT: Atraumatic, normocephalic. Oral mucous membranes are pink and moist. Conjunctivae are pale. Neck: Has a decrease in suppleness. Trachea is midline. Respiratory: Lung sounds have some mild wheezing noted to the right upper lobe and mild rales to the left lower lobe. Otherwise clear and diminished. No work of breathing is noted. Cardiovascular: Heart rate and rhythm are regular. Normal sinus rhythm on the monitor. Abdomen: Soft, flat, and nontender. Bowel sounds are active. There is a suprapubic catheter in place with an occlusive dressing. He also has a drainage bag noted to the right flank which I believe is a perinephric abscess. He is noted to have paralysis and contractures to his extremities. There is a central line in place to the right intrajugular. That site is without edema, erythema, or drainage. Neurologic: He is awake, alert, and appropriate. Mobility is minimal. LABORATORY AND X-RAY: None available today. ASSESSMENT AND PLAN: Mr. Wilson is being treated for a urinary tract infection with perinephric fistula and a possible pneumonia. At last check his white blood cell count was diminishing. We will continue vancomycin and cefepime as ordered. These plans have been discussed with and recommended by Dr. Ramos. COMORBIDITIES: For Mr. Wilson include quadriplegia and neurogenic bladder with suprapubic catheter, COPD, vision loss and depression. Dictated by CHASITY Dockery for Vinay Ramos MD cc: Vinay Ramos MD [facility]
--- NOTE | 2019-02-28 11:24 | PROGRESS NOTE ---
DATE: 02/28/2019 SUBJECTIVE: This morning Mr. Wilson referred to be doing a lot better. He feels stronger. OBJECTIVE: Vital: Blood pressure 141/79, pulse 73, respirations 19, and temperature 97.7 degrees. General: Mr. Wilson is a 58-year-old gentleman. He is in bed. He is remarkably malnourished and chronically ill looking. HEENT: Mucosa is pink and moist. Anicteric. Acyanotic. Neck: Supple. Chest: Good air entry bilaterally. There are a crackles in the posterior lung morgan. Cardiovascular: Regular rate and rhythm. GI: Abdomen is soft, and is distended. Lateral edema is noted. There is a suprapubic catheter in place. Mild umbilical hernia is also noted. 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 Follows basic commands. He is quadriplegic and bilateral blindness. Skin: There is an ostomy bag which is placed over the drainage on his back. Back: Minimum in the back. LABORATORY DATA: No CBC today. No CMP today so far blood cultures have been negative. Culture from the back have shown Enterococcus faecalis and an MRSA. The urine culture also showed an Enterococcus faecalis. The patient is currently on vancomycin and cefepime, and is being seen by infectious disease. ASSESSMENT: 1. Septic shock on presentation. Patient is currently off the dopamine. He has been transferred from the ICU to the cardiac intermediate floor. We are going to transfer him to the regular medical floor. 2. Recurrent catheter associated urinary tract infection. Urine culture positive for enterococcal faecalis. The patient is on vancomycin. 3. Spontaneous abscess draining through the back likely from a perinephric abscess. Culture of that has also grown Enterococcus faecalis and Staphylococcus Lantus, which is an MRSA. The patient is on vancomycin. 4. Bilateral hydronephrosis with hydroureter. The patient is status post cystoscopic examination through the suprapubic catheter and placement of bilateral double-J stents by Dr. Quintero on 02/26/2019. He is fairly stable at this point. 5. Altered mental status on presentation secondary to sepsis induced encephalopathy improved. 6. Acute kidney injury on admission resolved. 7. Microcytic anemia of chronic disease. Patient is status post 1 PRBC transfused. 8. Electrolyte abnormality including hypokalemia. We will continue to replace. 9. Left basilar infiltrate concerning for pneumonia. Patient is on cefepime. 10. History of cervical spine injury leading to paraplegia. 11. Severe protein calorie malnutrition. 12. Severe constipation with rectal impaction. Patient is on bowel regimen. According to him, he has been having multiple bowel movements. In general, I think Mr. Wilson is fairly stable. We are going to transfer him from the step- down unit to the medical floor. Continue with the current antimicrobial coverage. We will wait for further guidance from ID if they plan to discharge him on oral antimicrobial. cc: Camilo Sanchez MD MTDD
[2019-02-28] MEDS: VANCOMYCIN 1 GM/NS 1 GM/250 ML IVPB IV SCH (12:18)
[2019-02-28] MEDS: TYLENOL PO PRN (14:03)
[2019-02-28] MEDS: LIPOSYN 20% 250 ML IV SCH (17:11)
[2019-02-28] MEDS: XALATAN 0.005% OPH SOLN BOTH EYES SCH (21:49)
[2019-03-01] MEDS: MAXIPIME 1 GM in NS 50 ML IV SCH ×3 (02:22→17:46)
[2019-03-01] MEDS: CLINIMIX E 4.25%-5% SOLUTION 1,000 ML IV SCH (04:56)
[2019-03-01] MEDS: VANCOMYCIN 1 GM/NS 1 GM/250 ML IVPB IV SCH (04:59)
[2019-03-01] MEDS: TYLENOL PO PRN ×2 (07:36→16:11)
[2019-03-01] MEDS: PAXIL PO SCH (11:09)
[2019-03-01] MEDS: KLOR-CON PO SCH (11:09)
[2019-03-01] MEDS: MIRALAX PO SCH (11:09)
[2019-03-01] MEDS: ASPIRIN PO SCH (11:09)
--- NOTE | 2019-03-01 13:52 | PROGRESS NOTE ---
DATE: 03/01/2019 SUBJECTIVE: This morning Mr. Wilson refers to be doing well. No new complaints. He has been tolerating some of his diet recently. Mr. Wilson also had 2 bowel movements today. OBJECTIVE: Vital signs: Blood pressure is 148/67, pulse of 79, respirations 22, temperature 98.2 degrees. General: Mr. Wilson is a 58-year-old gentleman. He is in bed. He looks remarkably wasted. HEENT: Mucosa is pink and moist. Anicteric. Acyanotic. Neck: Supple. Chest: Good air entry bilaterally. A few crackles posteriorly. Cardiovascular: Regular rate and rhythm. No murmurs. GI: Abdomen is soft, nontender. Minimal lateral edema. There is a suprapubic catheter in place. Mild umbilical hernia is also noted. IRON BENDER: Patient is awake, alert. Follows basic commands. He is quadriplegic and has bilateral blindness. There is an ostomy bag over the draining site on his back. LABORATORY DATA: None for today. PATIENT MEDICATIONS: Have all been reviewed. ASSESSMENT AND PLAN: 1. Septic shock on presentation, improved. 2. Recurrent catheter associated urinary tract infection with culture positive for enterococcal faecalis. The patient is on vancomycin. 3. 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 Culture is positive for enterococcal faecalis and Staphylococcus Lantus. The patient continues to be on vancomycin. 4. Bilateral hydronephrosis with hydroureter. The patient is status post bilateral stent placement, today is day 3 postop. 5. Altered mental status on presentation secondary to sepsis induced encephalopathy, improved. 6. Acute kidney injury on admission, resolved. 7. Microcytic anemia of chronic disease. Patient is status post 1 PRBC transfusion. 8. Left basilar infiltrate concerning for pneumonia. Patient is on cefepime and vancomycin. We will repeat a chest x-ray on Sunday. 9. Severe constipation with rectal impaction, improved. The patient has been having multiple bowel movements lately. 10. Severe protein calorie malnutrition. Dietitian is on board. 11. History of cervical spine injury leading to quadriplegia, noted. cc: Camilo Sanchez MD
[2019-03-01] MEDS: LIPOSYN 20% 250 ML IV SCH (17:40)
[2019-03-01] MEDS: XALATAN 0.005% OPH SOLN BOTH EYES SCH (21:57)
[2019-03-01] MEDS: LIORESAL PO PRN (22:10)
[2019-03-02] MEDS: VANCOMYCIN 1 GM/NS 1 GM/250 ML IVPB IV SCH ×2 (00:50→17:19)
[2019-03-02] MEDS: CLINIMIX E 4.25%-5% SOLUTION 1,000 ML IV SCH ×2 (01:18→20:28)
[2019-03-02] MEDS: MAXIPIME 1 GM in NS 50 ML IV SCH ×3 (02:54→17:19)
[2019-03-02] MEDS: MIRALAX PO SCH (09:03)
[2019-03-02] MEDS: ASPIRIN PO SCH (09:03)
[2019-03-02] MEDS: KLOR-CON PO SCH (09:03)
[2019-03-02] MEDS: PAXIL PO SCH (09:03)
--- NOTE | 2019-03-02 11:16 | INFECTIOUS DISEASE PROGRESS NO ---
DATE: 03/02/2019 PRESENT ILLNESS: The patient has an enterococcal urinary tract infection and an enterococcal and Staph lentus perinephric fistula. The patient, on CT scan, showed the possibility of basilar pneumonia. MEDICATIONS: This is day 3 of treatment with the combination of cefepime, and day 6 of treatment with vancomycin. PHYSICAL EXAMINATION: Vital Signs: Temperature is 98.1 degrees, pulse 78, respirations 19, blood pressure 173/78. General: The patient is an ill-appearing, middle-aged male. He is in no acute distress. HEENT: He can hear my spoken words and see near objects. I did not notice any white patches in his mouth. Neck: There was no pain with neck movement. The patient has a right internal jugular venous catheter in place. The site is not swollen or purulent. Lungs: Clear to auscultation. Cardiovascular: Heart rate is regular. Abdomen: Soft and nontender. The patient has a suprapubic catheter in place. The patient has a drainage bag in place to drain the perinephric fistula, which is growing Enterococcus and Staph. Neurologic: The patient is paralyzed in all extremities, except the left arm. IMAGING AND LABORATORY DATA: There are no lab studies for today, and there is no x-ray for today. ASSESSMENT AND PLAN: The patient has an enterococcal urinary tract infection and an enterococcal and Staphylococcal perinephric fistula. The patient also may have pneumonia. My plan now is to continue with cefepime and vancomycin. Lab has been ordered for tomorrow, and also I have ordered a bedside chest x-ray. COMORBIDITIES: The patient is paralyzed in all extremities, except the left arm. He has a neurogenic bladder and has a suprapubic catheter. He also has chronic obstructive pulmonary disease, depression, and vision loss. cc: Vinay Ramos MD
--- NOTE | 2019-03-02 13:32 | PROGRESS NOTE ---
DATE: 03/02/2019 SUBJECTIVE: This morning, Mr. Wilson referred to be doing well. No new complaints. Still continues to have some draining to his back. OBJECTIVE: Vital Signs: Blood pressure is 173/78, pulse of 78, respirations are 19, temperature is 98.1 degrees. General Examination: Mr. Wilson is a 58-year-old, male. He is in bed. He did not seem to be in any distress. Mucosa is pink and moist. Anicteric. Acyanotic. He looks remarkably undernourished and chronically ill. He is quadriplegic. Chest: Clear to auscultation. Cardiovascular: Regular rate and rhythm. GI: Abdomen was soft. He had some binder over the suprapubic catheter. The CVA continues to be draining. There is a suprapubic catheter in place. 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 Followed basic commands. He is quadriplegic and also has bilateral blindness. Laboratory Data: None for this morning. Medications have been reviewed. Patient continues to be on vancomycin and cefepime. ASSESSMENT: 1. Septic shock on presentation, resolved. 2. Recurrent catheter-associated urinary tract infection with urine culture positive for Enterococcal faecalis. Patient is on vancomycin. 3. 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 Culture from the sample is positive for Enterococcal faecalis and Staphylococcus lentus (methicillin-resistant Staphylococcus aureus). 4. Bilateral hydronephrosis with hydroureter. The patient is status post bilateral double-J stent placement. Today is day 4 postop. Urology is on board. 5. Altered mental status on presentation secondary to sepsis-induced encephalopathy, resolved. 6. Acute kidney injury on admission, resolved. 7. Microcytic anemia of chronic disease. Patient is status post 1 unit of packed red blood cell transfusion. Hemoglobin and hematocrit are stable. No obvious signs of bleeding. 8. Left basilar infiltrate, concerning for pneumonia. Patient is on cefepime and vancomycin. There is a repeat x-ray for tomorrow. 9. Severe constipation with rectal impaction, improved. The patient has had multiple bowel movements documented. 10. Severe protein calorie malnutrition. Dietitian is on board. Patient is on nutritional supplement. 11. History of cervical spine injury leading to quadriplegia, noted. 12. Bilateral blindness, noted. 13. Disposition. Mr. Wilson is a resident of rehab at [facility]. Will be pending final antimicrobial recommendations from infectious disease and hopefully get him discharged. cc: Camilo Sanchez MD
[2019-03-02] MEDS: LIPOSYN 20% 250 ML IV SCH (17:19)
[2019-03-02] MEDS: XALATAN 0.005% OPH SOLN BOTH EYES SCH (20:30)
[2019-03-03] MEDS: MAXIPIME 1 GM in NS 50 ML IV SCH ×2 (01:49→09:00)
--- NOTE | 2019-03-03 07:35 | Diag Imaging Result Doc PS360 ---
EXAM: CHEST-PORTABLE INDICATION: dyspnea TECHNIQUE: One view COMPARISON: 02/24/2019 FINDINGS: The right central line is in stable position. The lungs remain grossly clear by plain radiograph. No new consolidation is identified. Cardiac silhouette is stable. IMPRESSION: Stable chest. Electronically signed by Gio Cheek 03/03/2019 7:33 AM
[2019-03-03 08:06] LABS: HEMATOCRIT 30.4 % (42.0-52.0); HEMOGLOBIN 9.9 g/dL (14.0-18.0); MCH 24.6 PG (27-31); MCHC 32.6 g/dL (33-37); MCV 75.4 FL (81-99); MPV 9.1 FL (7.4-10.4); RBC 4.03 XMIL (4.7-6.1); RDW 17.9 % (11.5-14.5); WBC 13.59 X1000 (4.8-10.8)
[2019-03-03 08:27] LABS: AGAP 13; ALBUMIN 2.6 g/dL (3.5-5.0); BUN 13 mg/dL (8-22); CALCIUM 8.9 mg/dL (8.8-10.2); CHLORIDE 102 mmol/L (98-107); COSMO 275; CREATININE 0.7 mg/dL (0.7-1.2); ESTIMATED GFR > 60; GLUCOSE 89 mg/dL (70-104); PHOSPHORUS 2.7 mg/dL (2.7-4.5); POTASSIUM 4.1 mmol/L (3.5-5.1); SODIUM 138 mmol/L (136-145); TCO2 23 mmol/L (25-35)
[2019-03-03] MEDS: ASPIRIN PO SCH (08:54)
[2019-03-03] MEDS: PAXIL PO SCH (08:54)
[2019-03-03] MEDS: KLOR-CON PO SCH (08:54)
[2019-03-03] MEDS: MIRALAX PO SCH (08:54)
[2019-03-03 10:54] LABS: INR 1.13; PROTIME 14.7 Seconds (11.0-16.0)
[2019-03-03] MEDS: VANCOMYCIN 1 GM/NS 1 GM/250 ML IVPB IV SCH (11:22)
--- NOTE | 2019-03-03 12:00 | DISCHARGE SUMMARY ---
ADMISSION DATE: 02/23/2019 DISCHARGE DATE: 03/03/2019 DISPOSITION: Back to [facility]. FOLLOW-UP: 1. Dr. Anderson. 2. Dr. Ramos. 3. Dr. Quintero. CONSULTATION DURING THIS ADMISSION: 1. ID was consulted; patient was seen by Dr. Ramos. 2. Urology was consulted; patient was seen by Dr. Quintero. INVASIVE PROCEDURES DONE DURING THIS ADMISSION: A cystoscopic exam through the suprapubic tube tract and placement of bilateral double-J stents was done by Dr. Quintero on 02/26/2019. IMAGING STUDIES OF SIGNIFICANCE: A CT scan of the abdomen and pelvis did show bilateral nephrolithiasis with an obstructing stone at the left UPJ. There is also a fairly severe right hydronephrosis. There is renal and urethral enhancement bilateral suggestive of infection. There was a rectal fecal impaction and bilateral small pleural effusions. MICROBIOLOGY DATA OF SIGNIFICANCE: 1. Blood cultures were 5 days negative. 2. The right back draining culture grew enterococcal faecalis and Staphylococcus Lantus (MRSA). 3. The urine culture was also positive for Enterococcus faecalis. ADMISSION DIAGNOSES: 1. Abscess on the back. 2. Suspected sepsis with leukocytosis and hypotension. 3. Probably urinary tract infection. 4. Quadriplegia. DIAGNOSES AT THE TIME OF DISCHARGE: 1. Septic shock on presentation secondary to bilateral pyelonephritis with hydronephrosis. 2. Recurrent catheter-associated urinary tract infection with culture positive for enterococcal faecalis. 3. Spontaneous abscess draining through the back, likely from perinephric abscess fistulization. Culture positive for Enterococcus faecalis and Staphylococcus Lantus (methicillin-resistant Staphylococcus aureus). 4. Bilateral hydronephrosis with hydroureter. The patient is status post bilateral double-J stent placement by Urology. Today is day 5 postoperatively. 5. Altered mental status on presentation secondary to sepsis-induced encephalopathy resolved during the hospital course. 6. Acute kidney injury, resolved. 7. Microcytic anemia of chronic disease. Patient is status post 1 packed red blood cell transfusion during the hospital course. Hemoglobin and hematocrit is stabilized. 8. Left basilar infiltrate concerning for pneumonia. A subsequent chest x-ray this morning shows lungs clear, no new consolidation, presumably pneumonia is cleared. 9. Severe constipation with rectal impaction. Patient was placed on bowel regimen, and he has been having multiple bowel movements. 10. Severe protein calorie malnutrition. 11. History of cervical spine injury leading to quadriplegia. 12. Bilateral blindness. 13. Bed-bound due to previous neurological injuries with chronic quadriplegia. DISCHARGE MEDICATIONS: 1. Multivitamin. 2. Aspirin 81 mg p.o. daily. 3. Gabapentin 300 b.i.d. 4. Baclofen. 5. Paroxetine 10 mg p.o. daily. 6. Acetaminophen 650 p.o. q. 6 hours p.r.n. 7. [place] 5 b.i.d. 8. Dulcolax 10 mg daily p.r.n. 9. Oxybutynin. 10. Trazodone. 11. Gabapentin. PRESENTING COMPLAINTS: 1. Draining of the back. 2. Altered mental status. HISTORY OF PRESENTING COMPLAINTS: Mr. Wilson is a 58-year-old male, who is known to have quadriplegia from spinal cord injury years ago, associated with neurogenic bladder. Has a suprapubic catheter and has had multiple UTIs. He is a resident of a snf, was brought in because of draining from the back. He was also altered. On presentation, he was found to be extremely hypotensive. He was admitted subsequently to the ICU for critical care management. HOSPITAL COURSE: Mr. Wilson was admitted to the ICU, was fluid resuscitated, was started on pressors. Blood cultures and urine cultures were done. Culture from the draining of the back was also done, and he was started on broad-spectrum IV antibiotics. Subsequently, a CAT scan was done which showed multiple abnormalities including bilateral hydroureters and bilateral renal enhancement concerning for infection. Urology was consulted. Patient was seen by Dr. Quintero. A cystoscopy exam through the suprapubic tract was done with placement of double-J stents in both ureters. Subsequently Mr. Wilson continues to show clinical improvement. Levophed was discontinued once blood pressure became more stabilized. He became more hemodynamically stable, and he was transferred from the ICU to the [facility]. Mr. Wilson was also seen by Infectious Disease. The cultures came back positive for Enterococcus faecalis and Staph on the abscess on the drainage from the back, and the urine was positive for Enterococcus faecalis. His blood cultures, however, were 5 days negative. This morning, Mr. Wilson is doing a lot better. He has been afebrile. His vitals have been very stable. He is eating and he has been having regular bowel movements. We think he is now back to his baseline and he can be discharged back home. Because he has a suspected perirenal abscess which is spontaneously draining, I think he is going to be needing to continue his IV antibiotics. We will get a PICC line, and we will wait on ID final recommendations as to what antimicrobials he will be going home on and for how long. At the time of the discharge, he was still on cefepime 1 g q. 8 hours and vancomycin as per pharmacy protocol. Mr. Wilson was also being treated for possible left lower lobe pneumonia. A subsequent chest x-ray this morning shows complete resolution and no new consolidation. Will be waiting to see if ID wants to prolong the antimicrobial therapy for the pneumonia as well. All the discharge instructions discussed with Mr. Wilson and he voiced understanding. TIME SPENT FOR DISCHARGE: 38 minutes. cc: Camilo Sanchez MD
[2019-03-03] MEDS ORDERED: NS 250 ML ONE (12:03)
[2019-03-03 14:25] VITALS: BP 109/59
--- NOTE | 2019-03-03 17:44 | INFECTIOUS DISEASE PROGRESS NO ---
DATE: 03/03/2019 The patient has the following infections. An enterococcal urinary tract infection, an enterococcal and Staph lentus perinephric fistula and basilar pneumonia. MEDICATIONS: The patient has been on cefepime for 4 days and for 10 days with vancomycin. PHYSICAL EXAMINATION: Vital Signs: Temperature is 98.3 degrees, pulse 62, respirations 18, blood pressure 131/63. General: This is an ill-appearing middle-aged male. He is in no acute distress. Head/eyes/ears/nose/throat: He can hear my spoken words and see near objects. He does not have any white coating of his tongue. Neck: The patient had a internal jugular venous catheter in place but it has been pulled out. Lungs: Clear to auscultation. Cardiovascular: Regular heart rate. Abdomen: Soft and nontender. There is a suprapubic catheter in place. Also the patient has a bag in place to drain the perinephric fistula, which is growing Enterococcus and Staph. The patient also has a suprapubic tube in place. Neurologic: The patient is paralyzed in all extremities except the left arm. Extremities: The patient has a PICC in the left arm. LAB AND X-RAY: Creatinine is 0.7. GFR is greater than 60. The patient's CBC shows a white blood cell count of 13,590, hemoglobin 9.9, and platelet count 658,000. ASSESSMENT AND PLAN: The patient has as mentioned above, a urinary tract infection, a perinephric fistula which is infected and basilar pneumonia. My plan is to continue for 10 more days the combination of vancomycin in a dose of 1250 mg every 24 hours and cefepime in a dose of 1 g every 12 hours. COMORBIDITIES: The patient is paralyzed except in the left arm. He has a neurogenic bladder and a suprapubic catheter. He also has chronic obstructive pulmonary disease, depression, and vision loss. cc: Vinay Ramos MD
--- NOTE | 2019-03-03 18:03 | INFECTIOUS DISEASE PROGRESS NO ---
DATE: 03/03/2019 The patient is going to the detention today on the following orders. Vancomycin 1250 mg IV every 24 hours, cefepime 1 g IV every 12 hours. CBC with differential, creatinine, vancomycin trough level every Sunday, creatinine every . These orders are for the next 10 days. The final order is to remove the patient's PICC after the last dose of vancomycin and cefepime. cc: Vinay Ramos MD
--- NOTE | 2019-03-12 23:24 | PROVIDER DOCUMENTATION ---
HPI-General Adult - General Chief Complaint: SEPSIS ALERT - D Stated Complaint: abscess Time Seen by Provider: 02/23/19 16:32 Source: patient Allergies/Adverse Reactions: Patient Allergies Allergy/AdvReac Type Severity Reaction Status Date / Time No Known Allergies Allergy Verified 02/23/19 17:39 Home Medications: Home Medication List Medication Instructions Recorded Confirmed Last Taken Type Latanoprost 0.005% Oph Soln 1 drop BOTH EYES QHS 05/02/15 02/23/19 05/22/18 21:00 History [Xalatan 0.005% Oph Soln] Cranberry Conc/C/Bacill Coag 1 each PO BID 06/18/15 02/23/19 05/23/18 09:00 History [Cranberry Tablet] Multivitamin [Multivitamins] 1 each PO DAILY 06/18/15 02/23/19 05/23/18 09:00 History Aspirin 81 mg PO DAILY #30 chewtab 07/01/15 02/23/19 05/23/18 09:00 Rx Baclofen 20 mg PO Q8H PRN 10/28/16 02/23/19 05/23/18 09:00 History Paroxetine HCl 10 mg PO DAILY 05/24/18 02/23/19 05/23/18 09:00 History Acetaminophen [Tylenol] 650 mg PO Q6H PRN PRN tablet 05/29/18 02/23/19 Unknown Rx Bisacodyl [Dulcolax] 10 mg VA DAILY PRN PRN 02/23/19 02/23/19 Unknown History Calcium Carbonate Chew [Tums] 1,000 mg PO Q6HR PRN 02/23/19 02/23/19 Unknown History Oxybutynin [Ditropan] 5 mg PO DAILY 02/23/19 02/23/19 Unknown History Trazodone [Desyrel] 100 mg PO BID 02/23/19 02/23/19 Unknown History Gabapentin [Neurontin] 300 mg PO BID #60 cap 03/03/19 Unknown Rx Hydrocodone/Acetaminophen 1 tab PO BID PRN #20 tab 03/03/19 Unknown Rx [Hydrocodone-Acetamin 5-325 mg] Review of Systems - Adult - REVIEW OF SYSTEMS - ADULT Constitutional: reports: no symptoms reported Past History - Adult - PAST MEDICAL HISTORY-ADULT Review of Records: reports: Medications Reviewed, Social history reviewed & non- contributory. (as in previous documetation. Addendum done by me for procedure only) Major Childhood Illnesses: reports: denies history Cardiovascular: reports: HTN Respiratory: reports: COPD Gastrointestinal: reports: denies history Obstetrical/Gynecological: reports: denies history Genitourinary: reports: kidney stones, chronic UTI's, other (neurogenic bladder with chronic suprapubic cath) Musculoskeletal: reports: other (c4 spinal injury with incomplete quad) Neurological: reports: denies history, Alzheimer's, spinal cord/brain injury (level of c4) Psychiatric: reports: denies history Endocrine/Immune: reports: denies history Other Conditions: reports: denies history - PRIOR SURGERIES/PROCEDURES Surgical/Procedure History: reports: other (suprapubic cath insertion ) - PRIOR HOSPITALIZATIONS Prior Hospitalizations: reports: for other non-related - IMMUNIZATION STATUS Childhood Immunizations: See Nurse Assessment Flu Vaccine: See Nurse Assessment - FAMILY HISTORY Family History: reviewed, not pertinent Physical Exam-General - CONSTITUTIONAL General Appearance: no apparent distress Progress - PLAN OF CARE/RESULTS Progress/Plan/Lab Results: Orders Category Date Time Status [facility] Routine AdmDCTranf 02/24/19 02:31 Active Apply Mechanical Device [QM] ORDERED Care 02/24/19 02:31 Completed Intake and Output-Strict Q 8-HR ASSESS Care 02/24/19 02:31 Active Vital Signs Order Q 4-HR ASSESS Care 02/24/19 02:31 Active Z-Document. for Tele Applied ORDERED Care 02/24/19 02:31 Completed CHEST-PORTABLE [RAD] Stat Exams 02/24/19 00:55 Completed BASIC METABOLIC PANEL [CHEM] Routine Lab 02/24/19 05:15 Completed BLOOD CULTURE [BLDCUL] Stat Lab 02/23/19 17:51 Completed CBC WITH DIFF [HEME] Routine Lab 02/24/19 05:15 Completed CBC WITH ELECTRONIC DIFF [HEME] Stat Lab 02/23/19 17:51 Completed COMPREHENSIVE METABOLIC PANEL [CHEM] Stat Lab 02/23/19 17:51 Completed LACTATE, PLASMA [CHEM] Stat Lab 02/23/19 17:51 Completed URINALYSIS W/POSS RFLX CULT [URINALYSIS] Stat Lab 02/23/19 18:12 Completed URINE CULTURE [RM] Routine Lab 02/23/19 18:20 Completed URINE MANUAL MICROSCOPIC [URINALYSIS] Stat Lab 02/23/19 18:12 Completed WOUND CULTURE INC GRAM STAIN [RM] Routine Lab 02/23/19 17:53 Completed 0.9% Sodium Chloride Inj [Ns] 1,000 ml Med 02/23/19 17:17 Discontinued .ROUTE As directed 0.9% Sodium Chloride Inj [Ns] 1,000 ml Med 02/24/19 02:31 Discontinued IV 100 mls/hr 0.9% Sodium Chloride Inj [Ns] 1,000 ml Med 02/23/19 17:13 Discontinued IV 999 mls/hr 0.9% Sodium Chloride Inj [Ns] 1,000 ml Med 02/23/19 18:17 Discontinued IV 999 mls/hr Acetaminophen [Tylenol] Med 02/24/19 02:31 Discontinued 650 mg PO Q6H PRN PRN Aspirin Med 02/24/19 09:00 Discontinued 81 mg PO DAILY Baclofen [Lioresal] Med 02/24/19 02:31 Discontinued 20 mg PO Q8H PRN PRN Bisacodyl [Dulcolax] Med 02/24/19 02:31 Discontinued 10 mg [place] DAILY PRN PRN Calcium Carbonate Chew [Tums] Med 02/24/19 02:31 Discontinued 1,000 mg PO Q6H PRN PRN Dextrose 5%-0.45% NaCl Inj [D5 1/2 Ns] 250 ml Med 02/23/19 22:15 Discontinued Norepinephrine [Levophed] 8 mg IV As Directed mls/hr Dopamine 800 mg/D5w Med 02/24/19 01:15 Discontinued 800 mg in 500 ml IV As Directed mls/hr Latanoprost 0.005% Oph Soln [Xalatan 0.005% Oph Soln] Med 02/24/19 21:00 Discontinued 0 ml BOTH EYES QHS Ondansetron [Zofran] Med 02/24/19 02:31 Discontinued 4 mg IV Q4H PRN PRN Paroxetine [Paxil] Med 02/24/19 09:00 Discontinued 10 mg PO DAILY Pharmacy Order [Vancomycin IV Per Pharmacy] Med 02/24/19 02:31 Discontinued 1 each MISC DIRECTED Piperacillin/Tazobactam [Zosyn] 3.375 gm Med 02/23/19 18:17 Discontinued 0.9% Sodium Chloride Inj [Ns] 50 ml IV NOW Piperacillin/Tazobactam [Zosyn] 3.375 gm Med 02/24/19 02:31 Discontinued 0.9% Sodium Chloride Inj [Ns] 50 ml IV Q6H Vancomycin 1 gm/Ns Med 02/23/19 18:17 Discontinued 1 gm in 250 ml IV NOW Telemetry [OM.EQ] Routine Oth 02/24/19 02:31 Active Transfer/Admit Order [TRANSFER] Routine Transfer 02/23/19 23:57 Completed Result Diagrams: 03/03/19 07:25 03/03/19 07:25 Procedures - CENTRAL LINE Time-Out Verification Completed?: Yes Central Line Lumen: triple Central Line Procedure Prep: Betadine Patient Position (To prevent Air Embolism): Trendelenburg (SC/IJ) Central Line Position: internal jugular (R) Ultrasound Guided?: Yes Hat, mask, sterile gown, & sterile gloves worn by physician?: Yes Site scrubbed vigorously for 30 seconds? (Groin: 2 min): Yes Anesthetic: 1% (lidocaine) Post Procedure: Sutured in place, Sterile field maintained, Sterile dressing applied, Blood aspirated from each lumen, Placement verfied by XRAY Complications: none Procedure Comment: Procedure performed by Dr Gudino under the supervision of Dr Benitez. Departure - Departure Date of Disposition Decision: 02/23/19 Time of Disposition Decision: 18:31 DIAGNOSIS: Hypokalemia, Renal insufficiency, Abscess of abdominal wall, Anemia, Leukocytosis, Hypotension Disposition: ADMITTED INPATIENT 09 Certified Medical Emergency: Emergent Condition: Fair - Critical Care Note This patient required my direct & personal management of CC.: Yes Total Time (mins): 38 (as docummented by Dr Benitez. I onnnly intubated pt.) Critical Care Statement: This patient required my direct personal management to treat or rule out processes, the absence of which, could potentiallly result in sudden, clinically significant life or limb threatening deterioration. Attestation - Physician/ TAYLER Attestation Patient care was provided by Advanced Practice Provider:: No The physician spent face to face time with patient:: Yes Advanced Practice Provider documentation review:: Supervising physician onsite and consulted in the evaluation and care of this patient. The physician did have a face to face encounter with the patient.
== END 2019-03-03 15:32 | DRG 659 ==
LOC: SUPCPDRO → ED 15:00 → SUATTDRO 02-24 02:00 → ICU 02-24 02:00 → 2N 02-27 12:05 → 3N 02-28 13:17
PROVIDERS: ATTEND Internal Medicine

== ENCOUNTER 2019-04-02 15:41 | Inpatient (IN) ==
--- NOTE | 2019-04-02 16:30 | EKG Report ---
Test Performed on : 04/02/2019 3:37:56 PM Test Reason : AMS Blood Pressure : / mmHG Vent. Rate : 064 BPM Atrial Rate : 064 BPM P-R Int : 138 ms QRS Dur : 082 ms QT Int : 466 ms P-R-T Axes : 036 062 053 degrees QTc Int : 480 ms Normal sinus rhythm. Prolonged QT Abnormal ECG When compared with ECG of 24-MAY-2018 09:11, premature supraventricular complexes. are no longer present ST elevation now present in Inferior leads ST no longer depressed in Anterior leads ST elevation now present in Lateral leads T wave inversion no longer evident in Inferior leads T wave inversion no longer evident in Lateral leads Unconfirmed Result
[2019-04-02 16:41] LABS: BASO# 0.02 X1000 (0.0-0.2); BASO% 0.2 % (0.0-0.8); EOS# 0.35 X1000 (0.0-0.7); EOS% 3.4 % (0.0-10.0); HEMATOCRIT 35.3 % (42.0-52.0); HEMOGLOBIN 11.2 g/dL (14.0-18.0); IMM GRAN# 0.03 X1000 (0.0-0.04); IMM GRAN% 0.3 % (0.0-0.5); LYMPH# 0.97 X1000 (1.2-3.4); LYMPH% 9.4 % (20.5-51.1); MCH 24.2 PG (27-31); MCHC 31.7 g/dL (33-37); MCV 76.4 FL (81-99); MONO# 0.61 X1000 (0.11-0.59); MONO% 5.9 % (1.7-9.3); MPV 8.7 FL (7.4-10.4); NEUT# 8.35 X1000 (1.4-6.5); NEUT% 80.8 % (42.2-75.2); PLT 362 X1000 (130-400); RBC 4.62 XMIL (4.7-6.1); RDW 15.9 % (11.5-14.5); WBC 10.33 X1000 (4.8-10.8)
[2019-04-02 17:05] LABS: AGAP 13; ALBUMIN 3.8 g/dL (3.5-5.0); ALKALINE PHOSPHATASE 130 U/L (32-122); BUN 13 mg/dL (8-22); CALCIUM 8.6 mg/dL (8.8-10.2); CHLORIDE 100 mmol/L (98-107); COSMO 280; CREATININE 1.1 mg/dL (0.7-1.2); ESTIMATED GFR > 60; GLUCOSE 110 mg/dL (70-104); GOT 14 U/L (10-34); GPT 6 U/L (10-44); POTASSIUM 3.6 mmol/L (3.5-5.1); SODIUM 140 mmol/L (136-145); TCO2 27 mmol/L (25-35)
--- NOTE | 2019-04-02 17:13 | Diag Imaging Result Doc PS360 ---
EXAM: CT HEAD W/O CONTRAST HISTORY: unresponsive TECHNIQUE: CT head without contrast COMPARISON: 06/19/2015 FINDINGS: No parenchymal hemorrhage. No epidural or subdural hematoma. No subarachnoid hemorrhage. Mild atrophy. No mass identified on this noncontrasted exam. No hydrocephalus. Right maxillary sinus opacification. IMPRESSION: 1.No hemorrhage 2.Long-standing atrophy 3.Right maxillary sinusitis This exam was performed using automated exposure control, adjustment of mA or kV according to patient size, and/or use of iterative reconstruction technique. Electronically signed by Lexa Campa 04/02/2019 5:10 PM
[2019-04-02 17:25] LABS: URINE SOURCE CATH
--- NOTE | 2019-04-02 17:25 | Diag Imaging Result Doc PS360 ---
EXAM: CHEST-PORTABLE HISTORY: bradycardia TECHNIQUE: Single view COMPARISON: 03/03/2019 FINDINGS: The lungs are well expanded. The heart is not enlarged. The vessels are not distended. There are no infiltrates. No effusion identified. IMPRESSION: Negative exam. Electronically signed by Lexa Campa 04/02/2019 5:22 PM
--- NOTE | 2019-04-02 17:32 | PROVIDER DOCUMENTATION ---
This chart was entered by Nasreen Cheek Scribe, acting as scribe for David Robbins MD. HPI-General Adult - General Chief Complaint: Altered Mental Status Stated Complaint: AMS Time Seen by Provider: 04/02/19 15:34 Source: EMS, jail records Unable to obtain history due to:: altered Allergies/Adverse Reactions: Patient Allergies Allergy/AdvReac Type Severity Reaction Status Date / Time No Known Allergies Allergy Verified 04/02/19 15:24 Home Medications: Home Medication List Medication Instructions Recorded Confirmed Last Taken Type Latanoprost 0.005% Oph Soln 1 drop BOTH EYES QHS 05/02/15 02/23/19 05/22/18 21:00 History [Xalatan 0.005% Oph Soln] Cranberry Conc/C/Bacill Coag 1 each PO BID 06/18/15 02/23/19 05/23/18 09:00 History [Cranberry Tablet] Multivitamin [Multivitamins] 1 each PO DAILY 06/18/15 02/23/19 05/23/18 09:00 History Aspirin 81 mg PO DAILY #30 chewtab 07/01/15 02/23/19 05/23/18 09:00 Rx Baclofen 20 mg PO Q8H PRN 10/28/16 02/23/19 05/23/18 09:00 History Paroxetine HCl 10 mg PO DAILY 05/24/18 02/23/19 05/23/18 09:00 History Acetaminophen [Tylenol] 650 mg PO Q6H PRN PRN tablet 05/29/18 02/23/19 Unknown Rx Bisacodyl [Dulcolax] 10 mg AK DAILY PRN PRN 02/23/19 02/23/19 Unknown History Calcium Carbonate Chew [Tums] 1,000 mg PO Q6HR PRN 02/23/19 02/23/19 Unknown History Oxybutynin [Ditropan] 5 mg PO DAILY 02/23/19 02/23/19 Unknown History Trazodone [Desyrel] 100 mg PO BID 02/23/19 02/23/19 Unknown History Gabapentin [Neurontin] 300 mg PO BID #60 cap 03/03/19 Unknown Rx Hydrocodone/Acetaminophen 1 tab PO BID PRN #20 tab 03/03/19 Unknown Rx [Hydrocodone-Acetamin 5-325 mg] - History of Present Illness -Gen Adult Nature of Presenting Problems: ems was called for 58yobm pt being unresponsive at [facility] but upon arrival, pt was awake and at his baseline. pt is only oriented to name, is quadriplegic has contracted UE and LE, dry skin, and not following commands. smells of urine in room. Location of Pain/Injury: reports: none Pain Radiation: reports: no radiation Quality of Pain: reports: none Severity: reports: mild Onset/Duration: reports: just prior to arrival Timing: reports: still present Context/Activities at Onset: reports: none Modifying Factors: improves with: nothing Associated Symptoms: reports: other (AMS) Review of Systems - Adult - REVIEW OF SYSTEMS - ADULT Constitutional: reports: see HPI, other (AMS). denies: fever, fatique, night sweats Eyes: reports: no symptoms reported Ears, Nose, Mouth & Throat: reports: no symptoms reported Cardiovascular: reports: no symptoms reported Respiratory: reports: no symptoms reported Gastrointestinal: reports: no symptoms reported Genitourinary: reports: no symptoms reported Musculoskeletal: reports: no symptoms reported Integumentary: reports: no symptoms reported Neurological: reports: no symptoms reported Psychiatric: reports: no symptoms reported Endocrine: reports: no symptoms reported Hematologic/Lymphatic: reports: no symptoms reported Allergic/Immunologic: reports: no symptoms reported All Other Systems: Reviewed and Negative Past History - Adult - PAST MEDICAL HISTORY-ADULT Review of Records: reports: Nursing Assessment Review, Medications Reviewed, Social history reviewed & non-contributory. Major Childhood Illnesses: reports: denies history Cardiovascular: reports: HTN Respiratory: reports: COPD Gastrointestinal: reports: denies history Obstetrical/Gynecological: reports: denies history Genitourinary: reports: kidney stones, chronic UTI's, other (neurogenic bladder with chronic suprapubic cath) Musculoskeletal: reports: other (c4 spinal injury with incomplete quad) Neurological: reports: denies history, Alzheimer's, spinal cord/brain injury (level of c4) Psychiatric: reports: denies history Endocrine/Immune: reports: denies history Other Conditions: reports: denies history - PRIOR SURGERIES/PROCEDURES Surgical/Procedure History: reports: indwelling device, other (suprapubic cath insertion ) - PRIOR HOSPITALIZATIONS Prior Hospitalizations: reports: for other non-related - IMMUNIZATION STATUS Childhood Immunizations: See Nurse Assessment Flu Vaccine: See Nurse Assessment - FAMILY HISTORY Family History: reviewed, not pertinent - SOCIAL HISTORY Smoking: other (former smoker) Physical Exam-General - PHYSICAL EXAM-ADULT Initial Vital Signs Reviewed: Yes - CONSTITUTIONAL General Appearance: no apparent distress, slow to respond. negative: anxious, o btunded, combative - EYES Eyes: PERRL/EOMI, pink conjunctivae - HEAD, EARS, NOSE, MOUTH & THROAT HENMT: normocephalic/atraumatic, moist mucous membranes - NECK Neck: non-tender, full range of motion, supple, normal inspection - RESPIRATORY Respiratory: chest non-tender, lungs clear, normal breath sounds - CARDIOVASCULAR Cardiovascular: normal peripheral pulses, regular rate, rhythm - GASTROINTESTINAL (ABDOMEN) Abdominal Exam: normal bowel sounds, non tender, soft - MUSCULOSKELETAL Back Exam: normal inspection Extremity: other (quadriplegic, contracted UE and LE). negative: normal inspection, slow capillary refill, swelling, tenderness - SKIN Integumentary: normal color, normal turgor, warm/dry (pt has dry skin). negative: ecchymosis, purpura, rash, swelling - NEUROLOGIC Neurologic: grossly normal, no motor/sensory deficits, other (pt at baseline) - PSYCHIATRIC Psych/Mental Status: disoriented x 3, other (only oriented to name). negative: normal mood/affect, normal thought content, normal thought process, oriented x 3 Progress - PLAN OF CARE/RESULTS Progress/Plan/Lab Results: Vital Signs - 8 hr 04/02/19 15:17 Pulse Rate 57 L Respiratory Rate 17 Blood Pressure 122/68 O2 Sat by Pulse Oximetry 100 Result Diagrams: 04/02/19 16:29 04/02/19 16:29 - EKG 1 Time of EKG reading by physician:: 15:37 EKG Read and Signed by:: David Robbins EKG Interpretation (*Must complete 3 of following elements*): Abnormal Rate: 64 Rhythm: NSR [place]: normal QRS: other (prolonged QT) [place] Interval: normal ST Wave: normal - CONSULTS/PCP/HOSPITALIST Notification #1 *Consult/PCP/Hospitalist*: d/w Dr Paris Time Discussed: 17:31 Consult Disposition: Admit (recommended to monitor, hold atropine, admit on tele.) #2 Consult: dr Paris called back, recommended transfer to [facility] in [place] Time Discussed: 17:41 Consult Disposition: other Departure - Departure Date of Disposition Decision: 04/02/19 Time of Disposition Decision: 15:39 DIAGNOSIS: Sinus bradycardia, persistent AMS (altered mental status) Qualifiers: Altered mental status type: unspecified Qualified Code(s): R41.82 - Altered mental status, unspecified Disposition: ADMITTED INPATIENT 09 Certified Medical Emergency: Emergent Condition: Stable Additional Instructions: ED Follow Up Instructions: You have been treated by a care provider in the Emergency Department. These instructions are being provided to you so you can have an understanding of how to care for yourself upon discharge. Upon discharge from the Emergency Department, you are responsible for making arrangements for follow-up care by a physician of your choice. Take all prescribed medications as directed. Return to the Emergency Department immediately for any new or worsening symptoms. You may call the Physician Referral phone number at [phone] to obtain a list of Physicians who are taking new patients. Referrals and Follow-Ups: None,PCP [Primary Care Provider] - Discharge Education: Confusion - Critical Care Note This patient required my direct & personal management of CC.: No Attestation - Physician/ TAYLER Attestation Patient care was provided by Advanced Practice Provider:: No The physician spent face to face time with patient:: Yes Advanced Practice Provider documentation review:: Supervising physician onsite and consulted in the evaluation and care of this patient. The physician did have a face to face encounter with the patient. This chart was documented by the indicated scribe, (Nasreen Cheek Scribe) and accurately reflects the services I performed and decisions made by me, David Robbins MD, as attested by the provider's signature.
[2019-04-02 17:33] LABS: URINE BACTERIA 3+ /HFP; URINE EPITHELIAL CELLS >10 /HPF (<10); URINE RBC TNTC /HPF (<10); URINE WBC TNTC /HPF (<10)
[2019-04-02 17:34] LABS: CLARITY CLOUDY (CLEAR); COLOR STRAW; GLUCOSE URINE NEGATIVE (NEGATIVE)
[2019-04-02 17:35] LABS: BILIRUBIN URINE NEGATIVE (NEGATIVE); BLOOD URINE LARGE (NEGATIVE); KETONE URINE 15 mg/dL (NEGATIVE); PH URINE 6.5; PROTEIN URINE 30 mg/dL (NEGATIVE); SP GRAVITY URINE 1.015
[2019-04-02 17:36] LABS: LEUKOCYTES URINE LARGE (NEGATIVE); NITRITE URINE POSITIVE (NEGATIVE)
[2019-04-02] MEDS ORDERED: ZOFRAN IV PRN (18:45)
[2019-04-02] MEDS ORDERED: NS 1,000 ML IV SCH (18:45)
--- NOTE | 2019-04-02 19:55 | HISTORY AND PHYSICAL ---
CHIEF COMPLAINT: Altered mental status. HISTORY OF PRESENT ILLNESS: The patient is a 58-year-old elderly male who was brought to the emergency department via ambulance due to altered mental status. He resides at the care home. He is quadriplegic. He has contractions. He also has dementia and is currently nonverbal. Unsure of his baseline, although it is reported that he typically is able to talk and converse. ALLERGIES: No known drug allergies. MEDICATIONS: Xalatan eyedrops, multivitamin, aspirin, baclofen 20 q.8, Paxil 10, Tylenol p.r.n., Dulcolax p.r.n., Ditropan, gabapentin 300 b.i.d., [place] 5 p.r.n. REVIEW OF SYSTEMS: Unobtainable from Mr. Wilson due to his current altered mental status; however, the chart denies any fevers or chills. Denies any recurrent cough or congestion. Denies any current GI or issues. PAST MEDICAL HISTORY: Significant for hypertension, COPD, chronic kidney disease with chronic urinary tract infections and neurogenic bladder. He has Alzheimer dementia, has had a spinal cord injury at C4. PAST SURGICAL HISTORY: He has had indwelling catheter placed. FAMILY HISTORY: Noncontributory. SOCIAL HISTORY: He is a former smoker. He does not currently smoke, drink or use illicit substances. He resides in a care home. PHYSICAL EXAMINATION: VITAL SIGNS: Reviewed. He is afebrile. Pulse in the upper 30s to low 40s, respiratory 17, BP 122/68. GENERAL: The patient is in no current respiratory distress. He does not answer questions nor follow commands. HEENT: Normocephalic. NECK: Supple. CARDIOVASCULAR: Bradycardia. No apparent murmurs. CHEST: Clear. No wheezing, nonlabored. ABDOMEN: Soft. EXTREMITIES: No edema. He does have flexion contractures of all 4 extremities. NEUROLOGIC: Unable to assess. ASSESSMENT: 1. Acute altered mental status. 2. Bradycardia of undetermined significance or origin. 3. Alzheimer type dementia. 4. Recurrent urinary tract infections. PLAN: Given that he is symptomatically bradycardic and has an acute altered mental status, we are going to place him on antibiotics for a presumed urinary tract infection. We are going to place him in the hospital on telemetry, follow his heart rate, restart his home medications and will follow. cc: Hermes Paris MD
[2019-04-02] MEDS: ZOSYN 3.375 GM in NS 50 ML IV SCH (20:15)
[2019-04-03] MEDS: ZOSYN 3.375 GM in NS 50 ML IV SCH ×4 (04:37→22:00)
[2019-04-03 06:06] LABS: HEMATOCRIT 39.7 % (42.0-52.0); HEMOGLOBIN 12.5 g/dL (14.0-18.0); MCH 24.9 PG (27-31); MCHC 31.5 g/dL (33-37); MCV 78.9 FL (81-99); MPV 8.9 FL (7.4-10.4); RBC 5.03 XMIL (4.7-6.1); RDW 16.2 % (11.5-14.5)
[2019-04-03 06:35] LABS: AGAP 22; ALB/GLOB RATIO 0.7; ALBUMIN 3.3 g/dL (3.5-5.0); ALKALINE PHOSPHATASE 134 U/L (32-122); BUN 13 mg/dL (8-22); CALCIUM 9.1 mg/dL (8.8-10.2); CHLORIDE 100 mmol/L (98-107); COSMO 283; CREATININE 1.2 mg/dL (0.7-1.2); ESTIMATED GFR > 60; GLUCOSE 98 mg/dL (70-104); GOT 15 U/L (10-34); GPT 7 U/L (10-44); POTASSIUM 3.8 mmol/L (3.5-5.1); SODIUM 142 mmol/L (136-145); TCO2 20 mmol/L (25-35); TOTAL BILIRUBIN 0.49 mg/dL (0.20-1.00); TOTAL PROTEIN 8.1 g/dL (6.3-8.3)
[2019-04-03] MEDS: NS 1,000 ML IV SCH (10:49)
--- NOTE | 2019-04-03 11:11 | PROGRESS NOTE ---
DATE: 04/03/2019 SUBJECTIVE: The patient is resting in bed. He is poorly responsive, and he is non verbal. He looks chronically ill. OBJECTIVE: Vital Signs: Temperature 98.7 degrees, pulse 70, respiratory rate 18, blood pressure 117/61, and oxygen saturation 100%. HEENT: Patient is atraumatic, normocephalic. He is anicteric. He has some purulent discharge from the right eye. Neck: No lymphadenopathy or thyromegaly. Cardiovascular: S1, S2. Respiratory: He has evidence of good air entry bilaterally. Abdomen: Soft, nontender. No masses felt. He has suprapubic catheter in place. Extremities: He has contractures in all extremities. Dermatology: Patient has evidence of dry skin with exfoliative changes noted. Central nervous system: The patient is non verbal and poorly responsive with evidence of contractures in all extremities. LABORATORY DATA: WBC is 11.0, hematocrit 39.7 with platelet count of 402,000. Sodium is 142, potassium 3.8, chloride 100, bicarb is 28, BUN is 13 and creatinine is 1.2. UA shows large amount of blood with positive nitrites, and also numerous RBCs and large amount of WBCs. CT scan of the brain shows evidence of right maxillary sinusitis. X-ray of the chest negative study. EKG shows a normal sinus rhythm with heart rate of about 64. Prolonged QT. ASSESSMENT AND PLAN: 1. Encephalopathy likely metabolic related to infective processes-urinary tract infection, and also right maxillary sinusitis. I will continue to follow up on her clinical progression while patient is receiving antibiotic treatment. 2. Urinary tract infection. Obtain urine and blood cultures. Continue antibiotics. 3. Right maxillary sinusitis. Continue antibiotics. 4. Suprapubic catheter in place. Aware. 5. Leukocytosis, likely secondary to infective processes (UTI/right maxillary sinusitis). 6. Dementia. Supportive care. We will start the patient on a cholinesterase inhibitor specifically Aricept. 7. Deep vein thrombosis prophylaxis. Lovenox. 8. Gastrointestinal prophylaxis. Proton pump inhibitor. 9. Contractures. We will recommend physical therapy. cc: Eric Morales MD [facility]
[2019-04-03] MEDS: TYLENOL PO PRN (21:15)
[2019-04-04] MEDS: NS 1,000 ML IV SCH ×2 (01:30→14:36)
[2019-04-04] MEDS: TYLENOL PO PRN (02:58)
[2019-04-04] MEDS: ZOSYN 3.375 GM in NS 50 ML IV SCH (04:31)
[2019-04-04] MEDS: ARICEPT PO SCH (08:31)
[2019-04-04] MEDS: LOVENOX SUBQ SCH (08:31)
[2019-04-04 10:19] LABS: BASO# 0.05 X1000 (0.0-0.2); BASO% 0.5 % (0.0-0.8); EOS# 0.54 X1000 (0.0-0.7); EOS% 5.5 % (0.0-10.0); HEMATOCRIT 34.6 % (42.0-52.0); HEMOGLOBIN 10.9 g/dL (14.0-18.0); IMM GRAN# 0.04 X1000 (0.0-0.04); IMM GRAN% 0.4 % (0.0-0.5); LYMPH# 1.46 X1000 (1.2-3.4); LYMPH% 14.8 % (20.5-51.1); MCH 24.4 PG (27-31); MCHC 31.5 g/dL (33-37); MCV 77.4 FL (81-99); MONO# 0.73 X1000 (0.11-0.59); MONO% 7.4 % (1.7-9.3); MPV 9.4 FL (7.4-10.4); NEUT# 7.03 X1000 (1.4-6.5); NEUT% 71.4 % (42.2-75.2); PLT 429 X1000 (130-400); RBC 4.47 XMIL (4.7-6.1); RDW 15.8 % (11.5-14.5); WBC 9.85 X1000 (4.8-10.8)
[2019-04-04 10:24] LABS: AGAP 14; BUN 9 mg/dL (8-22); CALCIUM 8.5 mg/dL (8.8-10.2); CHLORIDE 104 mmol/L (98-107); COSMO 281; ESTIMATED GFR > 60; GLUCOSE 83 mg/dL (70-104); POTASSIUM 3.6 mmol/L (3.5-5.1); SODIUM 142 mmol/L (136-145); TCO2 24 mmol/L (25-35)
[2019-04-04] MEDS: MERREM 1 GM in NS 50 ML IV SCH ×2 (11:39→17:08)
--- NOTE | 2019-04-04 17:57 | PROGRESS NOTE ---
DATE: 04/04/2019 INTERVAL HISTORY: The patient's encephalopathy has essentially resolved. Awake, alert, and speaking coherently. Complaining only of left leg tightness/pain. Afebrile overnight. REVIEW OF SYSTEMS: A 12-point review of systems is negative as per interval history. LABORATORY DATA: WBC 9.85, hemoglobin 10.9, hematocrit 34.9, platelets 429,000. Basic metabolic panel unremarkable. OBJECTIVE: vital signs: Temperature max 98.2 degrees, pulse 65, respirations 20, blood pressure 144/72, O2 saturation 98% on room air. General: No acute distress. Vitals: As above. HEENT: Normocephalic, atraumatic. Moist mucous membranes. Cardiovascular: Regular rate and rhythm. No murmurs noted. Pulmonary: Clear to auscultation bilaterally. Abdomen: Soft, nontender, nondistended. Bowel sounds positive. Extremities: Peripheral pulses intact. Contractures of all extremities, most prominent in the right upper, least prominent in the left upper. Neurologic: Cranial nerves appear to be intact. Minimal movement of right upper extremity and bilateral lower extremities, and slightly better movement of left upper extremity. No new focal deficits. Psychiatric: Normal mood and affect. Awake, alert, and oriented x3. ASSESSMENT AND PLAN: 1. Metabolic encephalopathy. Now resolved. Patient's mental status is now essentially normal. 2. Extended spectrum beta-lactamase urinary tract infection. Antibiotic changed to Merrem to treat extended spectrum beta-lactamase urinary tract infection, as well as sinusitis. Continue antibiotics and monitor. 3. Sinusitis. On antibiotics as above. 4. Dementia. May be pretty mild. The patient was quite encephalopathic on admission, but essentially resolved now. Completely oriented. 5. Functional quadriplegia. Patient with previous neurologic injury, has almost no movement and chronic contractures of both legs and right upper extremity. Left upper extremity has some contractures, but less than previous, has a little better movement, but not really enough to do much. He had to have help to berry picker a phone, although he could hold to his head once it was placed in his hand. 6. Bradycardia noted on admission, but not really since. We will continue to monitor. 7. Disposition. Patient to long-term at [facility]. Continue antibiotics and if he continues to improve, then may be able to go back there on a course of Invanz plus something by mouth for his sinusitis.
[2019-04-05] MEDS: MERREM 1 GM in NS 50 ML IV SCH ×3 (02:59→17:50)
[2019-04-05] MEDS: NS 1,000 ML IV SCH ×3 (03:18→22:19)
[2019-04-05 07:49] LABS: BASO# 0.05 X1000 (0.0-0.2); BASO% 0.6 % (0.0-0.8); EOS# 0.62 X1000 (0.0-0.7); EOS% 7.8 % (0.0-10.0); HEMATOCRIT 36.8 % (42.0-52.0); HEMOGLOBIN 11.9 g/dL (14.0-18.0); IMM GRAN# 0.04 X1000 (0.0-0.04); IMM GRAN% 0.5 % (0.0-0.5); LYMPH# 1.47 X1000 (1.2-3.4); LYMPH% 18.6 % (20.5-51.1); MCH 24.9 PG (27-31); MCHC 32.3 g/dL (33-37); MONO% 7.6 % (1.7-9.3); NEUT# 5.14 X1000 (1.4-6.5); NEUT% 64.9 % (42.2-75.2); PLT 418 X1000 (130-400); RBC 4.78 XMIL (4.7-6.1); RDW 15.7 % (11.5-14.5); WBC 7.92 X1000 (4.8-10.8)
[2019-04-05 07:52] LABS: EOS 8 % (1-10); HYPOCHROM 1+; LYMPHS 16 % (21-51); MONO 6 % (1-9); SEGS 70 % (42-75)
[2019-04-05 08:14] LABS: AGAP 14; BUN 4 mg/dL (8-22); CHLORIDE 104 mmol/L (98-107); COSMO 281; CREATININE 0.8 mg/dL (0.7-1.2); ESTIMATED GFR > 60; GLUCOSE 87 mg/dL (70-104); POTASSIUM 3.3 mmol/L (3.5-5.1); SODIUM 143 mmol/L (136-145); TCO2 25 mmol/L (25-35)
[2019-04-05] MEDS: ARICEPT PO SCH (10:03)
[2019-04-05] MEDS: LOVENOX SUBQ SCH (10:04)
[2019-04-05] MEDS ORDERED: KLOR-CON PO ONE (11:31)
[2019-04-05] MEDS ORDERED: LIORESAL PO PRN (11:33)
[2019-04-05] MEDS ORDERED: DULCOLAX PR PRN (11:33)
[2019-04-05] MEDS ORDERED: TYLENOL PO PRN (11:33)
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
[2019-04-05] MEDS: TYLENOL PO PRN (13:54)
[2019-04-05] MEDS: THERA M PLUS PO SCH (13:55)
--- NOTE | 2019-04-05 17:12 | CONSULTATION ---
DATE OF CONSULTATION: 04/05/2019 CONSULTING PHYSICIAN: Dr. Samuels with hospitalist service. CONSULTATION FOR: Symptomatic UTI, neurogenic bladder, suprapubic tube management. HISTORY OF PRESENT ILLNESS: A 58-year-old quadriplegic male with known neurogenic bladder which has been managed with suprapubic tube for a number of years. He resides in [facility] facility and reports the nurses at the facility change it approximately once a month. He has had a history of recurrent UTIs in the past. He has seen Dr. Quintero in the past. Most recently he underwent cystoscopy through the suprapubic tract and placement of bilateral ureteral stents on 02/26/2019. At that time he had digital rectal examination revealing approximately 50 g prostate. He also has a history of bilateral staghorn stones and right flank abscesses. He has undergone open incision and drainage right flank. 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 He was admitted to the hospital with altered mental status, concern for sepsis. His urine cultures growing E coli from 04/02/2019. He reports his suprapubic tube typically drains well . He is unable to assess gross hematuria secondary to blindness but states he was not told that he has had hematuria by nursing staff. PAST MEDICAL HISTORY: Quadriplegia secondary to spinal cord injury, dementia, chronic kidney disease, hypertension, COPD, glaucoma. PAST SURGICAL HISTORY: Suprapubic tube placement, incision debridement of right flank abscess, cystoscopy with bilateral ureteral stent placement 5 weeks ago. ALLERGIES: No known drug allergies. HOME MEDICATIONS: [place], gabapentin, Ditropan, Dulcolax, Tylenol, Paxil, baclofen, aspirin, multivitamin, Xalatan eye drops. SOCIAL HISTORY: Former smoker, denies alcohol or illicit drug use. Resides in a [facility] facility. FAMILY HISTORY: Negative for malignancies. REVIEW OF SYSTEMS: Reviewed and 12 systems negative except for the HPI. PHYSICAL EXAMINATION: T 98.3 degrees, P 59, BP 143/70.General: Cachectic appearing and ill- appearing male. HEENT: Normocephalic, atraumatic. Cardiovascular: Regular rhythm. Pulmonary: Bilateral breath sounds. Abdomen: Scaphoid, ventral scarring noted likely from exploratory laparotomy after his injury or PEG tube placement, suprapubic tube site is clean, dry and intact with suprapubic tube which is 20-Hebrew emanating. There is cloudy urine in the tubing leading to the Mayo bag. : Meatus is patent, penile shaft is without lesions or deformities, testes are atrophic. Perineal has intact structural integrity no lesions noted. Digital rectal examination declined at the time of this consultation. Extremities: Contracted muscle wasting noted. Dermatologic: No obvious skin rashes. Neurologic: Alert and oriented x3. Psychiatric: Appropriate mood and affect. PERTINENT LABORATORY DATA: White cell count is 8000, hematocrit is 36.8, creatinine is 0.8. PERTINENT IMAGES: None. Microbiology per HPI. ASSESSMENT/PLAN: A 58-year-old male with quadriplegia with neurogenic bladder which has been managed with suprapubic tube. I was essentially asked to exchange suprapubic tube given patient's recent concern for sepsis and symptomatic urinary tract infection. I explained risks and benefits of the procedure the patient. Then he was prepped and draped sterile fashion. 10 mL of sterile water withdrawn from the balloon and suprapubic tube was removed. I reprepped his side with Betadine and introduced a fresh 20-Hebrew suprapubic tube. 10 mL of sterile water were instilled in the balloon which was fresh. I then irrigated the suprapubic tube with sterile water. He had some sediment but the tube otherwise irrigated easy, there was no evidence of blood or clots. Suprapubic tube was connected to a catheter drainage bag . He tolerated procedure well. PLAN: 1. Keep suprapubic tube to gravity drainage. 2. He plans on having exchange next time when [facility]. 3. Please call there any questions. cc: MD KWAN Moscoso
[2019-04-05] MEDS: TUMS PO PRN ×2 (17:49→21:13)
[2019-04-05] MEDS ORDERED: HYTRIN PO SCH (21:00)
[2019-04-05] MEDS: NEURONTIN PO SCH (21:07)
[2019-04-05] MEDS: XALATAN 0.005% OPH SOLN BOTH EYES SCH (21:07)
[2019-04-06] MEDS: MERREM 1 GM in NS 50 ML IV SCH ×3 (01:37→17:46)
[2019-04-06 07:53] LABS: AGAP 15; BUN 4 mg/dL (8-22); CALCIUM 8.7 mg/dL (8.8-10.2); CHLORIDE 103 mmol/L (98-107); COSMO 270; CREATININE 0.7 mg/dL (0.7-1.2); ESTIMATED GFR > 60; GLUCOSE 91 mg/dL (70-104); MAGNESIUM 1.7 mg/dL (1.5-2.7); POTASSIUM 3.8 mmol/L (3.5-5.1); SODIUM 137 mmol/L (136-145); TCO2 19 mmol/L (25-35)
[2019-04-06] MEDS: NEURONTIN PO SCH ×2 (09:57→20:46)
[2019-04-06] MEDS: DITROPAN PO SCH (09:58)
[2019-04-06] MEDS: THERA M PLUS PO SCH (09:59)
[2019-04-06] MEDS: ARICEPT PO SCH (09:59)
[2019-04-06] MEDS: ASPIRIN PO SCH (09:59)
[2019-04-06] MEDS: PAXIL PO SCH (09:59)
[2019-04-06] MEDS: LOVENOX SUBQ SCH (10:01)
[2019-04-06] MEDS: DESYREL PO SCH ×2 (10:10→20:46)
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
[2019-04-06] MEDS: TYLENOL PO PRN (13:36)
[2019-04-06] MEDS: NS 1,000 ML IV SCH ×2 (17:46→20:10)
[2019-04-06] MEDS: XALATAN 0.005% OPH SOLN BOTH EYES SCH (23:23)
[2019-04-07] MEDS: MERREM 1 GM in NS 50 ML IV SCH (02:20)
[2019-04-07 06:38] LABS: INR 1.05; PROTIME 13.8 Seconds (11.0-16.0)
[2019-04-07 06:39] LABS: PTT 31.7 Seconds (22.3-41.8)
[2019-04-07] MEDS ORDERED: INVANZ 1 GM/NS 1 GM/50 ML IVPB IV SCH (07:15)
[2019-04-07] MEDS: NS 1,000 ML IV SCH (07:51)
[2019-04-07] MEDS: DESYREL PO SCH (08:17)
[2019-04-07] MEDS: TUMS PO PRN (08:17)
[2019-04-07] MEDS: TYLENOL PO PRN (08:22)
[2019-04-07] MEDS: LOVENOX SUBQ SCH ×2 (08:23→08:34)
[2019-04-07] MEDS: THERA M PLUS PO SCH (08:23)
[2019-04-07] MEDS: PAXIL PO SCH (08:23)
[2019-04-07] MEDS: DITROPAN PO SCH (08:23)
[2019-04-07] MEDS: ARICEPT PO SCH (08:23)
[2019-04-07] MEDS: ASPIRIN PO SCH (08:24)
[2019-04-07] MEDS: NEURONTIN PO SCH (08:30)
[2019-04-07] MEDS ORDERED: NS 250 ML ONE (09:08)
[2019-04-07 11:38] VITALS: BP 129/70
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
== END 2019-04-07 16:28 | DRG 698 ==
LOC: P.ED 15:41 → SUATTDRO 18:06 → 2N 18:06 → 1N 04-04 20:26
PROVIDERS: ATTEND Internal Medicine